=== PATIENT | female | born 1960 | race African-American/Black ===

== ENCOUNTER → 2016-12-04 | Day surgery (SDC) | payer MEDICARE ==
[~2016-12-04] VITALS: Ht 157.5 cm; Wt 99.8 kg
[~2016-12-04] MED LIST: AMLO1TAB95 PO; AMLO5TAB2 PO; ASPI325T4 PO; ATOR40TA59 PO; CALC667C6 PO; CEFAZOLIN 2GM PREMIX 50 ML IV ONE; CEPH-264 PO; CLON1PAT2 TD; ERGO500012 PO; FENTANYL PF 100 MCG/2 ML VIAL. IV PRN; FENTANYL PF 250 MCG/5 ML VIAL. ONE; FURO40TA4 PO; HEPARIN S0DIUM 5,000 UNIT in IV NORMAL SALINE 500ML BAG 500 ML IRR ONE; HEPARIN for IV BOLUS 10,000 UNIT/10 ML VIAL. ONE; HYDR-2868 PO; HYDR-2869 PO; HYDROMORPHONE 2 MG/ML VIAL. IV PRN; ISOS30TA4 PO; IV NORMAL SALINE 1000ML BAG 1,000 ML IV SCH; IV RINGERS,LACTATED 1000ML 1,000 ML IV SCH; LABE200T2 PO; LIDOCAINE 1% 1 ML SYRINGE. ID PRN; LIDOCAINE 1% PF 48 ML, SODIUM BICARBONATE VIAL 12 MEQ in TOTAL VOLUME SYRINGE 60 ML ID ONE; MIDAZOLAM HCL 2 MG/2 ML VIAL. ONE; MORPHINE SULFATE 2 MG/ML DISP.SYRIN. IV PRN; OLME40TA PO; OMEP40CA5 PO; ONDANSETRON PF 4 MG/2 ML VIAL. IV PRN; OXYC-323 PO; OXYCODONE/APAP 5/325 TABLET. ONE; OXYCODONE/APAP 5/325 TABLET. PO ONE; POTA10CA PO; PROAIR HFA8.5 GM INH; PROCHLORPERAZINE 10 MG/2 ML VIAL. IV PRN; PROPOFOL 20 ML IV ONE; SITA100T PO; SITA50TA PO; SODI650T PO; SURGICEL FIBRILLAR 1X2 EACH. ONE; TRAM50TA PO; [UNRECOGNIZED DRUG - REMARK]
[2016-12-04 08:49] LABS: BASO # 0.1 x10^3/uL (0.0-0.2); BASO % 1 % (0-3); EOS % 3 % (0-3); HEMATOCRIT 34.7 % (36.0-47.0); HEMOGLOBIN 11.4 g/dL (12.0-15.5); LYMPH # 2.1 x10^3/uL (1.0-4.8); LYMPH % 29 % (24-48); MEAN CORPUSCULAR HEMOGLOBIN 31 pg (25-35); MEAN CORPUSCULAR HGB CONC 33 g/dL (31-37); MEAN CORPUSCULAR VOLUME 93 fL (79-100); MONO % 9 % (0-9); NEUT % 59 % (31-73); PLATELET COUNT 194 x10^3/uL (140-400); RED BLOOD COUNT 3.72 x10^6/uL (3.50-5.40); RED CELL DISTRIBUTION WIDTH 14.8 % (11.5-14.5); WHITE BLOOD COUNT 7.4 x10^3/uL (4.0-11.0)
[2016-12-04 08:53] LABS: CALCIUM 9.9 mg/dL (8.5-10.1); CREATININE 6.1 mg/dL (0.6-1.0); GFR 8.7; POTASSIUM 4.4 mmol/L (3.5-5.1)
[2016-12-04 09:01] LABS: INR 1.1 (0.8-1.1); PROTHROMBIN TIME PATIENT 13.8 SEC (11.7-14.0)
--- NOTE | 2016-12-04 11:19 | PREOP HP ---
DATE OF SERVICE: 12/04/2016 CHIEF COMPLAINT: Renal failure, dialysis dependent. HISTORY OF PRESENT ILLNESS: This is a 56-year-old female on chronic hemodialysis by way of a right internal jugular dialysis catheter. She was initially seen in August of this year. Surgery has been delayed, because of admission for sepsis. That has cleared. She has underlying hypertension and diabetes. She has had vein mapping. PROCEDURE PERFORMED which showed only small veins superficially both forearm and upper arm bilaterally. The patient is right hand dominant. She is here today for placement of AV graft. MEDICATIONS: Include calcium acetate 667 mg 2 capsules t.i.d., 50,000 units of vitamin D weekly, sodium bicarbonate, amlodipine 5 mg daily, aspirin 325 mg daily, atorvastatin 40 mg daily, clonidine 0.1 mg patch daily, hydralazine 50 mg b.i.d., isosorbide mononitrate extended release 30 mg tab daily, labetalol 300 mg daily, Benicar 40 mg daily and tramadol 50 mg daily as needed for pain. PAST SURGICAL HISTORY: Hysterectomy and . SOCIAL HISTORY: The patient is a nonsmoker. PHYSICAL EXAMINATION: HEAD AND NECK: Unremarkable. Normal carotid upstrokes. No carotid bruits. Right IJ dialysis catheter in place. CHEST: Breath sounds are equal, distant. CARDIOVASCULAR: Regular rate and rhythm, no murmur. EXTREMITIES: She has excellent brachial and radial pulses. NEUROLOGIC: Nonfocal. Vein mapping is as noted. PLAN: For placement of left arm access. Procedure at the either forearm or upper arm AV graft has been discussed with the patient. She understands and agrees to proceed as recommended. ASAD PARKER MD DR: YULI/leatha JOB#: [id number] / [id number]
--- NOTE | 2016-12-04 11:33 | PDOC ---
VASCULAR BRIEF OPERATIVE NOTE Date: Dec 04, 2016 Pre-Op Diagnosis ESRD Post-Op Diagnosis same Procedure Performed left forearm AVG Surgeon Ese Anesthesia Type: MAC, Local Blood Loss min ASAD PARKER MD Dec 04, 2016 11:33
[2016-12-04 12:43] VITALS: BP 108/73
--- NOTE | 2016-12-04 16:43 | OP ---
DATE OF SURGERY: 12/04/2016 PREOPERATIVE DIAGNOSIS: Renal failure. POSTOPERATIVE DIAGNOSIS: Renal failure. PROCEDURE PERFORMED: Left forearm AV graft. SURGEON: Asad Mulligan MD ANESTHETIC: Local MAC. INDICATIONS: This is a 56-year-old hypertensive female with underlying obesity and diabetes who has end-stage renal disease, dialysis dependent at this time. She had preoperative vein mapping, which did not show adequate superficial veins either in the forearm or upper arm. Recommendation was for primary AV graft in light of the poor venous anatomy. DESCRIPTION OF PROCEDURE: The patient was brought to the operating room, preoperative antibiotics were administered. The intravenous sedation was administered, 1% Xylocaine was utilized to anesthetize the antecubital fossa and left transverse incision was placed. Soft tissue was divided with electrocautery. The antecubital vein and a small outflow cephalic and deep penetrating median antecubital vein were noted. These were marginally adequate for AV graft anastomosis. Deep dissection was continued down. Brachioradialis fascia was incised and brachial artery and its adjacent brachial vein were isolated. The adjacent brachial vein, thin walled, was a 4.5-5 mm vessel and this was selected as the outflow for the arteriovenous shunt placement. The vein and arteries were both isolated, doubly surrounded vessel loops. A counter incision was made after anesthetizing the antecubital tissues. A subcutaneous tunnel was created through which a 4-7 mm standard wall Propaten graft was passed. Vessel loops were secured and the vein longitudinal venotomy was made with 11 blade, extended with Raymond scissors, and graft was trimmed an end-to-side anastomosis was completed with HS7 Prolene suture. Graft was then flushed with heparinized saline solution. The patient received 3000 units of intravenous heparin. After 3 minutes heparin circulation, vessel loops were secured on the artery and the longitudinal arteriotomy was made here with a 11 blade, extended with Raymond scissors. The graft was trimmed and end-to-side anastomosis was completed with HS7 Prolene suture. Blood flow was instituted through the shunt and there was a palpable outflow thrill. Hemostasis required a little bit of Surgical fibrillar to achieve and this appeared to be excellent. The distal counterincision was closed with interrupted 3-0 nylon mattress sutures. The antecubital incision was closed with 3-0 Vicryl placed in the deep subcutaneous tissues and a running 3-0 Vicryl placed in subcuticular tissue. Steri-Strips and sterile dressings were applied. The patient was moved from the operating room to recovery in satisfactory stable condition. ASAD MULLIGAN MD DR: YULI/leatha JOB#: [id number] / [id number]
== END | disposition home or self-care (01) ==
LOC: SURG 07:39
DX: E11.22 Type 2 diabetes mellitus with diabetic chronic kidney disease (principal); I12.0 Hypertensive chronic kidney disease with stage 5 chronic kidney disease or end stage renal disease; N18.6 End stage renal disease; K21.9 Gastro-esophageal reflux disease without esophagitis; D64.9 Anemia, unspecified; E78.00 Pure hypercholesterolemia, unspecified; J45.909 Unspecified asthma, uncomplicated; E66.9 Obesity, unspecified; Z90.710 Acquired absence of both cervix and uterus
CPT/HCPCS: 36415; 36830; 80048; 82947; 85027; 85610; 85730; C1768; C1769; J0690; J0780; J2250; J2704; J3010; J7040

== ENCOUNTER 2017-04-15 08:33 | Inpatient (IN) | payer MEDICARE, BC ==
[~2017-04-15] VITALS: Ht 157.5 cm; Wt 109.0 kg
[2017-04-15 03:00] VITALS: BP 127/77
[~2017-04-15 08:33] MED LIST changes: -ASPI325T4 PO; +ASPI325T8 PO; -CEFAZOLIN 2GM PREMIX 50 ML IV ONE; -ERGO500012 PO; +ERGO500027 PO; -FENTANYL PF 100 MCG/2 ML VIAL. IV PRN; -FENTANYL PF 250 MCG/5 ML VIAL. ONE; -HEPARIN S0DIUM 5,000 UNIT in IV NORMAL SALINE 500ML BAG 500 ML IRR ONE; -HEPARIN for IV BOLUS 10,000 UNIT/10 ML VIAL. ONE; -HYDROMORPHONE 2 MG/ML VIAL. IV PRN; -IV NORMAL SALINE 1000ML BAG 1,000 ML IV SCH; -IV RINGERS,LACTATED 1000ML 1,000 ML IV SCH; -LIDOCAINE 1% 1 ML SYRINGE. ID PRN; -LIDOCAINE 1% PF 48 ML, SODIUM BICARBONATE VIAL 12 MEQ in TOTAL VOLUME SYRINGE 60 ML ID ONE; -MIDAZOLAM HCL 2 MG/2 ML VIAL. ONE; -MORPHINE SULFATE 2 MG/ML DISP.SYRIN. IV PRN; -OLME40TA PO; +OLME40TA12 PO; -ONDANSETRON PF 4 MG/2 ML VIAL. IV PRN; -OXYCODONE/APAP 5/325 TABLET. ONE; -OXYCODONE/APAP 5/325 TABLET. PO ONE; -POTA10CA PO; +POTASSIUM CHLO10 MEQ PO; -PROCHLORPERAZINE 10 MG/2 ML VIAL. IV PRN; -PROPOFOL 20 ML IV ONE; -SURGICEL FIBRILLAR 1X2 EACH. ONE
--- NOTE | 2017-04-15 08:53 | PHYS DOC ---
Past Medical History Past Medical History: Diabetes-Type II, High Cholesterol, Hypertension, OR, Other Additional Past Medical Histor: ESRD, enlarged heart, sleep apnea- uses cpap, obesity Past Surgical History: , Hysterectomy, Tonsillectomy Alcohol Use: None Drug Use: None Adult General Chief Complaint Chief Complaint: chest pain HPI HPI Patient is a 57 year old female who presents with squeezing chest pain. Pt reports symptoms started 20min prior to arrival while she was detention through dialysis. No radiation of pain. EMS gave asa and nitro and pt's symptoms improved after nitro. Pt states pain similar to "when I had my heart attack" last year. Unsure of the interventions completed at that time. Pt reports prior to chest pain she was feeling well, no cough, fevers, n/v. Denies h/o PE or DVT. PCP is Dr. Christian, director of labor relations Dr. Kent, charter school executive director Dr. Blanc. Review of Systems Review of Systems Constitutional: Denies fever or chills [] Eyes: Denies change in visual acuity, redness, or eye pain [] HENT: Denies nasal congestion or sore throat [] Respiratory: Denies cough or shortness of breath [] Cardiovascular: No additional information not addressed in HPI [] GI: Denies abdominal pain, nausea, vomiting, bloody stools or diarrhea [] : Denies dysuria or hematuria [] Musculoskeletal: Denies back pain or joint pain [] Integument: Denies rash or skin lesions [] Neurologic: reports headache after nitro, denies focal weakness or sensory changes [] Current Medications Current Medications Current Medications Medications (Trade) Dose Ordered Sig/[facility] Start Time Stop Time Status Last Admin Dose Admin Acetaminophen (Tylenol) 1,000 mg 1X ONCE 04/15/17 09:00 04/15/17 09:01 DC 04/15/17 09:24 1,000 MG Morphine Sulfate 4 mg PRN Q2HR PRN 04/15/17 10:00 04/16/17 09:59 04/15/17 14:58 4 MG Nitroglycerin (Nitrostat) 0.4 mg PRN Q5MIN PRN 04/15/17 10:00 04/16/17 09:59 Allergies Allergies Allergies Coded Allergies Type Severity Reaction Last Updated Verified No Known Drug Allergies 12/04/16 No Physical Exam Physical Exam Constitutional: Well developed, well nourished, no acute distress,morbid obesity HENT: Normocephalic, atraumatic, bilateral external ears normal, oropharynx moist, no oral exudates, nose normal. [] Eyes: PERRLA, EOMI, conjunctiva normal, no discharge. [] Neck: Normal range of motion, no tenderness, supple, no stridor. [] Cardiovascular:Heart rate regular with regular rhythm, no murmur [] Lungs & Thorax: Bilateral breath sounds clear to auscultation, no wheeze or crackles Abdomen: Bowel sounds normal, soft, no tenderness, no masses, no pulsatile masses. [] Skin: Warm, dry, no erythema, no rash. [] Back: No tenderness, no CVA tenderness. [] Extremities: No tenderness, no cyanosis, no clubbing, ROM intact, no edema.neg homen's bilaterally Neurologic: Alert and oriented X 3, normal motor function, normal sensory function, no focal deficits noted. [] Psychologic: Affect normal, judgement normal, mood normal. [] Current Patient Data Vital Signs Vital Signs Date Time Temp Pulse Resp B/P (MAP) Pulse Ox O2 Delivery O2 Flow Rate FiO2 04/15/17 09:25 78 16 135/80 (98) 98 Room Air 04/15/17 08:35 98.4 98.4 Lab Values Laboratory Tests Test 04/15/17 08:57 White Blood Count 6.9 x10^3/uL (4.0-11.0) Red Blood Count 3.32 x10^6/uL (3.50-5.40) L Hemoglobin 10.3 g/dL (12.0-15.5) L Hematocrit 30.3 % (36.0-47.0) L Mean Corpuscular Volume 91 fL (79-100) Mean Corpuscular Hemoglobin 31 pg (25-35) Mean Corpuscular Hemoglobin Concent 34 g/dL (31-37) Red Cell Distribution Width 14.0 % (11.5-14.5) Platelet Count 130 x10^3/uL (140-400) L Neutrophils (%) (Auto) 65 % (31-73) Lymphocytes (%) (Auto) 23 % (24-48) L Monocytes (%) (Auto) 8 % (0-9) Eosinophils (%) (Auto) 3 % (0-3) Basophils (%) (Auto) 1 % (0-3) Neutrophils # (Auto) 4.4 x10^3uL (1.8-7.7) Lymphocytes # (Auto) 1.6 x10^3/uL (1.0-4.8) Monocytes # (Auto) 0.5 x10^3/uL (0.0-1.1) Eosinophils # (Auto) 0.2 x10^3/uL (0.0-0.7) Basophils # (Auto) 0.0 x10^3/uL (0.0-0.2) Prothrombin Time 13.6 SEC (11.7-14.0) Prothrombin Time INR 1.1 (0.8-1.1) Sodium Level 141 mmol/L (136-145) Potassium Level 3.3 mmol/L (3.5-5.1) L Chloride Level 103 mmol/L (98-107) Carbon Dioxide Level 26 mmol/L (21-32) Anion Gap 12 (6-14) Blood Urea Nitrogen 28 mg/dL (7-20) H Creatinine 3.9 mg/dL (0.6-1.0) H Estimated GFR (Cockcroft-Gault) 14.5 BUN/Creatinine Ratio 7 (6-20) Glucose Level 142 mg/dL (70-99) H Calcium Level 8.3 mg/dL (8.5-10.1) L Magnesium Level 1.8 mg/dL (1.8-2.4) Total Bilirubin 0.5 mg/dL (0.2-1.0) Aspartate Amino Transferase (AST) 20 U/L (15-37) Alanine Aminotransferase (ALT) 30 U/L (14-59) Alkaline Phosphatase 76 U/L (46-116) Creatine Kinase 137 U/L (26-192) Troponin I Quantitative 0.178 ng/mL (0.000-0.055) Total Protein 7.5 g/dL (6.4-8.2) Albumin 3.5 g/dL (3.4-5.0) Albumin/Globulin Ratio 0.9 (1.0-1.7) L Laboratory Tests 04/15/17 08:57 Laboratory Tests 04/15/17 08:57 EKG EKG sinus, normal axis, QTC of 476, no ST elevation or depression, T-wave inversions in 1, aVL, compared with previous EKG performed on 05/2016 and no acute change appreciated. Radiology/Procedures Radiology/Procedures CXr: IMPRESSION: No acute finding. No significant change Course & Med Decision Making Course & Med Decision Making Pertinent Labs and Imaging studies reviewed. (See chart for details) pt given PO tylenol and morphine. Labs/CXR/ekg performed. No acute findings but pain started just prior to arrival. Will admit, accepted by Dr. Christian. Dragon Disclaimer Dragon Disclaimer This electronic medical record was generated, in whole or in part, using a voice recognition dictation system. Departure Departure Impression: Primary Impression: Chest pain Disposition: ADMITTED INPATIENT Admitting Physician: Shanti Christian Referrals: SHANTI CHRISTIAN MD (PCP) KELSEY COLLINS MD Apr 15, 2017 08:53
[2017-04-15] MEDS ORDERED: ACETAMINOPHEN 500 MG TABLET PO ONE (09:00)
[2017-04-15] MEDS ORDERED: MORPHINE SULFATE 4 MG/ML DISP.SYRIN. IV ONE (09:00)
[2017-04-15 09:05] LABS: BASO % 1 % (0-3); EOS % 3 % (0-3); HEMATOCRIT 30.3 % (36.0-47.0); HEMOGLOBIN 10.3 g/dL (12.0-15.5); LYMPH # 1.6 x10^3/uL (1.0-4.8); LYMPH % 23 % (24-48); MEAN CORPUSCULAR HEMOGLOBIN 31 pg (25-35); MEAN CORPUSCULAR HGB CONC 34 g/dL (31-37); MEAN CORPUSCULAR VOLUME 91 fL (79-100); MONO % 8 % (0-9); NEUT % 65 % (31-73); PLATELET COUNT 130 x10^3/uL (140-400); RED BLOOD COUNT 3.32 x10^6/uL (3.50-5.40); WHITE BLOOD COUNT 6.9 x10^3/uL (4.0-11.0)
--- NOTE | 2017-04-15 09:05 | EKG ---
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
[2017-04-15 09:16] LABS: INR 1.1 (0.8-1.1); PROTHROMBIN TIME PATIENT 13.6 SEC (11.7-14.0)
[2017-04-15 09:25] LABS: CALCIUM 8.3 mg/dL (8.5-10.1); CREATININE 3.9 mg/dL (0.6-1.0); GFR 14.5; POTASSIUM 3.3 mmol/L (3.5-5.1)
[2017-04-15 09:31] LABS: ALBUMIN 3.5 g/dL (3.4-5.0); ALBUMIN/GLOBULIN RATIO 0.9 (1.0-1.7); MAGNESIUM 1.8 mg/dL (1.8-2.4); TOTAL BILIRUBIN 0.5 mg/dL (0.2-1.0); TOTAL PROTEIN 7.5 g/dL (6.4-8.2)
[2017-04-15] MEDS ORDERED: MORPHINE SULFATE 4 MG/ML DISP.SYRIN. IV PRN (10:00)
[2017-04-15] MEDS ORDERED: NITROGLYCERIN SUBLINGUAL 0.4 MG BOTTLE OF 25. SL PRN (10:00)
--- NOTE | 2017-04-15 10:17 | RAD ---
Indication chest pain. A single view of the chest was obtained. Comparison is made to an examination October 01, 2016. There is unchanged mild cardiomegaly. Somewhat tortuous thoracic aorta is noted. An acute parenchymal infiltrate is not seen. There is no pleural fluid. There is no pneumothorax. A significant change compared to the prior exam is not seen. Dialysis catheter has been removed. IMPRESSION: No acute finding. No significant change
[2017-04-15 11:32] VITALS: BP 158/87
--- NOTE | 2017-04-15 11:36 | ACF ---
Admit Criteria Forms Admit Criteria Forms Admit Criteria Forms CARDIOLOGY GRG Clinical Indications for Admission to Inpatient Care ( Place 'X' for any and all applicable criteria): Hospital admission is needed for appropriate care of the patient because of ANY ONE of the following (1): [ ] I. Hemodynamic instability as indicated by ALL of the following (1)(2)(3) (4)(5) [ ]a) Vital signs or other findings not as expected for chronic patient condition or baseline [ ]b) Instability indicated by ANY ONE of the following: [ ]i) Hypotension [ ]ii) Symptomatic Tachycardia unresponsive to treatment ( e.g., analgesia, fluids, sedation as indicated) [ ]iii) Inadequate perfusion indicated by ANY ONE of the following: [ ] 1) Lactic acidosis (> 2 mmol/L) [ ] 2) New abnormal capillary refill (> 3 seconds) [ ] 3) Reduced urine output [ ] 4) New altered mental status [ ]iv) Orthostatic vital sign changes unresponsive to treatment (e.g., fluids) [ ]v) IV inotropic or vasopressor medication required to maintain adequate blood pressure or perfusion [ ] II. Severe heart failure as indicated by ANY ONE of the following(17)(18) [ ]a) Respiratory distress [ ]b) Hypotension [ ]c) Anasarca (refractory to outpatient therapy) [ ]d) Cardiac arrhythmias of immediate concern [ ]e) Myocardial ischemia [ ] III. Cardiac arrhythmias or findings of immediate concern indicated by ANY ONE of the following (19)(20): [ ] a) Heart rhythms that are inherently dangerous or unstable indicated by ANY ONE of the following (21)(22)(23): [ ] i) Resuscitated ventricular fibrillation or cardiac arrest [ ] ii) Ventricular escape rhythm [ ] iii) Sustained ventricular tachycardia (30 seconds or more of ventricular rhythm at greater than 100 beats per minute) [ ] iv) Nonsustained ventricular tachycardia and ANY ONE of the following: [ ] 1) Suspected cardiac ischemia as cause or consequence of ventricular tachycardia [ ] 2) In setting of acute myocarditis [ ] b) Unstable cardiac conduction defects indicated by ANY ONE of the following(23)(24)(25) [ ] i) Type II second-degree atrioventricular block [ ]ii) Third-degree atrioventricular block [ ]iii) New-onset left bundle branch block with suspected myocardial ischemia [ ]c) Any heart rhythm and ANY ONE of the following (21)(22)(26)(27) (28) [ ] i) Continuous long-term ECG monitoring needed (e.g., initiation of drug requiring monitoring for more than 24 hours) [ ] ii) Patient has automatic implanted cardioverter defibrillator that is repeatedly firing, malfunctioning, or in need of immediate adjustment of settings beyond the scope of ambulatory or observation care [ ]d) Heart rhythms of concern due to ANY ONE of the following: [ ] i) Hypotension [ ] ii) Respiratory distress [ ] iii) Association with other significant symptoms (e.g., bradycardia with syncope or ongoing dizziness, supraventricular tachycardia with chest pain (14)(15)(17) [ ] IV. Monitoring for cardiac contusion beyond the scope of observation care needed [A](30)(31)(32) [ ] V. Surgical or device complication (e.g., valve replacement complication , pacemaker dysfunction) (35)(41)(44)(45)(46) [ ] . Inpatient palliative care needed. [B](49) Also use Inpatient Palliative Care Criteria [ ] VII. Nonbacterial thrombotic (marantic) endocarditis (36)(43)(47)(48) [X ] VIII. Cardiology condition, symptom, or finding for which emergency and observation care has failed or are not considered appropriate. [ ] IX. Acute valvular disease requiring inpatient as indicated by ANY ONE of the following (41) [ ]a) Acute valvular regurgitation (42) [ ]b) Noninfectious valvulitis (43) [ ]c) Obstructive valve thrombosis [ ]d) Paravalvular leak [ ]e) Other significant valvular disorder remaining after emergency or observation level of care (as appropriate) [ ]X. Pericardial disease requiring inpatient treatment as indicated by ANY ONE of the following (33)(34)(35)(36)(37) [ ]a) Suspected tamponade (38)(39)(40) [ ]b) Hemopericardium [ ]c) Other significant pericardial disorder remaining after emergency or observation level of care (as appropriate) [ ] XI. Cardiac ischemia beyond scope of emergency and observation care. [ ] XII. Hypertension requiring inpatient treatment as indicated by ANY ONE of the following (6)(7)(8) [ ]a) SBP greater than 220 mm Hg or DBP greater than 120 mmHg despite treatment [ ]b) SBP greater than 140 mm Hg or DBP greater than 100 mm Hg with evidence of acute end organ damage as indicated by ANY ONE of the following [ ] i) Encephalopathy [ ] ii) Acute renal failure as indicated by new onset of ANY ONE of the following (9)(10)(11)(12)(13) [ ]1) 3-fold rise in serum creatinine from baseline [ ]2) Serum creatinine greater than 4 mg/dL ( 354 micromoles/L) with acute rise greater than 0.5 mg/dL (44.2 micromoles/L) [ ]3) Reduction of more than 75% in estimated glomerular filtration rate from baseline [ ]4) Estimated glomerular filtration rate less than 35 mL/min/1.73m2 (0.59 mL/sec/1.73m2) in child up to 18 years of age [ ]5) Cessation of urine output indicated by ALL of the following [ ]A. Adequate volume status [ ]B. Inadequate urine output as indicated by ANY ONE of the following [ ]a. Urine output less than 0.3 mL/kg/hr for 24 hours [ ]b. Anuria (urine output less than 0.1 mL/kg/hr) for 12 hours [ ] iii) Aortic dissection [ ] iv) Myocardial Ischemia [ ] v) Left ventricular heart failure [ ]vi) Retinal Hemorrhage [ ]vii) Other significant finding [ ]c) Hypertension in child requiring inpatient treatment as indicated by ALL of the following(14)(15)(16) [ ] i) Outpatient treatment not effective, not available, or not appropriate [ ]ii) SBP or DBP greater than 95th percentile for age [ ]iii) Evidence of acute end organ damage as indicated by ANY ONE of the following [ ]1) Altered mental status [ ]2) Acute renal failure as indicated by new onset of ANY ONE of the following(9)(10)(11)(12)(13) [ ]A. 3-fold rise in serum creatinine from baseline [ ]B. Serum creatinine greater than 4 mg/dL (354 micromoles/L) with acute rise greater than 0.5 mg/dL (44.2 micromoles/L) [ ]C. Reduction of more than 75% in estimated glomerular filtration rate from baseline [ ]D. Estimated glomerular filtration rate less than 35 mL/min/1.73m2 (0.59 mL/sec/1.73m2) in child up to 18 years of age [ ]E. Cessation of urine output indicated by ALL of the following [ ]a. Adequate volume status [ ]b. Inadequate urine output as indicated by ANY ONE of the following [ ]i) Urine output less than 0.3 mL/kg/hr for 24 hours [ ]ii) Anuria ( urine output less than 0.1 mL/kg/hr) for 12 hours [ ]3) Severe headache [ ]4) Visual disturbance [ ]5) Retinal hemorrhage [ ]6) Other significant finding [ ]XIII. Complications of transplanted heart indicated by ANY ONE of the following(61): [ ]a) Acute graft rejection requiring inpatient management (eg, intravenous immunosuppression)(62)(63) [ ]b) Acute graft heart failure indicated by ANY ONE of the following(64): [ ]i) Hemodynamic instability [ ]ii) Cardiac arrhythmias of immediate concern [ ]iii) Pulmonary edema that is very severe (eg, mechanical ventilation needed, imminent or likely, need for 100% oxygen to keep oxygen saturation above 90%) [ ]iv) Pulmonary edema that is persistent as indicated by ALL of the following: [ ]1) New need for oxygen therapy to keep oxygen saturation above 90% (or increased FiO2 need from baseline) [ ]2) Has not improved sufficiently with emergency department or observation care IV diuretics or other heart failure treatments[E] [ ]v) Altered mental status that is severe or persistent [ ]vi) Increased creatinine (new on laboratory test) with reduction of more than 50% in estimated glomerular filtration rate from baseline [ ]vii) Progressively (ongoing) rising creatinine (known from past laboratory test) with reduction of more than 25% in estimated glomerular filtration rate from baseline [ ]viii) Acute renal failure [ ]ix) Acute peripheral ischemia (eg, examination shows pulseless, cool, mottled, or cyanotic extremity) [ ]x) Pulmonary artery catheter monitoring needed [ ]xi) Other sign or symptom of heart failure requiring inpatient treatment (ie, too severe or not responsive to outpatient and observation care treatment) [ ]c) Infection requiring inpatient management (eg, Hemodynamic instability, need for intravenous antimicrobial treatment)(66)(67)(68)(69)(70) [ ]d) Cardiac allograft vasculopathy requiring inpatient management ( eg evidence of cardiac ischemia)(71) [ ]e) Other complication of transplanted heart (eg, stroke, severe pulmonary hypertension, severe valvular dysfunction) requiring inpatient management(72) The original [facility] [employer] content created by [employer] has been revised. The portions of the content which have been revised are identified through the use of italic text or in bold, and [facility] [employer] has neither reviewed nor approved the modified material. All other unmodified content is copyright [facility] [employer]. Please see references footnoted in the original [facility] [employer] edition 2016 BOUBACAR JONAS Apr 15, 2017 11:36
[2017-04-15] MEDS ORDERED: POTASSIUM CHLORIDE 20 MEQ TABLET.ER. PO ONE (12:00)
--- NOTE | 2017-04-15 12:19 | PDOC2 ---
KAL MA M[employer]ICIP[employer] BOND TRADER 04/15/17 1219: CARDIAC CONSULT DATE OF CONSULT Date of Consult DATE: 04/15/17 TIME: 11:49 REASON FOR CONSULT Reason for Consult: Chest pain REFERRING PHYSICIAN Referring Physician: Columba SOURCE Source: Chart review, Patient HISTORY OF PRESENT ILLNESS HISTORY OF PRESENT ILLNESS This is a pleasant 57 yo female admitted for complains of chest pain. Reports of squeezing midsternal chest discomfort non radiating without associated nausea , vomiting, SOA, palpitations. No changes to her activity tolerance. Denies any recent long distance travel and has been compliant with her dialysis and medications. She was retirement during dialysis when this happened. However, she has stopped taking her GERD medications since she ran out few weeks ago. With deep breathing and mild palpation to her mid chest her pain is reproducible. Denies any recent falls, injury or any heavy lifting. PAST MEDICAL HISTORY Past Medical History Cardiovascular: CHF (diastolic dysfunction), HTN, Hyperlipidemia Pulmonary: Asthma, SOLEDAD with CPAP intolerance CENTRAL NERVOUS SYSTEM: Other (No pertinent history) GI: No pertinent hx Heme/Onc: No pertinent hx Musculoskeletal: Osteoarthritis Renal/: ESRD Endocrine: Diabetes (2), subclinical hypothyroidism PAST SURGICAL HISTORY Past Surgical History Tonsillectomy, Hysterectomy, Carpal tunnel release, left AV graft placement, [facility] 08/2016 FAMILY HISTORY Family History: Diabetes SOCIAL HISTORY Smoke: No ALCOHOL: none Drugs: None Lives: with Family CURRENT MEDICATIONS CURRENT MEDICATIONS Current Medications Medications (Trade) Dose Ordered Sig/Kt Route PRN Reason Start Time Stop Time Status Last Admin Dose Admin Morphine Sulfate 4 mg 1X ONCE IV 04/15/17 09:00 04/15/17 09:01 DC 04/15/17 09:24 Acetaminophen (Tylenol) 1,000 mg 1X ONCE PO 04/15/17 09:00 04/15/17 09:01 DC 04/15/17 09:24 ALLERGIES ALLERGIES: Coded Allergies: No Known Drug Allergies (Unverified , 12/04/16) ROS Review of System 14 point ROS evaluated with pertinent positives noted per HPI PHYSICAL EXAM General: Alert, Oriented X3, Cooperative, No acute distress HEENT: Atraumatic, Mucous membr. moist/pink Lungs: Clear to auscultation, Normal air movement Heart: Regular rate (SR), Normal S1, Normal S2, Other (2/6 systolic murmur to LLS border) Abdomen: Soft, Other (epigastric tenderness) Extremities: No cyanosis, Other (1+ bilateral LE pitting edema; LAV dialysis fistula + for thrill and bruit) Skin: No breakdown, No significant lesion Neuro: Normal speech, Sensation intact Psych/Mental Status: Mental status NL, Mood NL MUSCULOSKELETAL: Osteoarthritic changes both hands VITALS VITALS Vital Signs Date Time Temp Pulse Resp B/P (MAP) Pulse Ox O2 Delivery O2 Flow Rate FiO2 04/15/17 09:25 78 16 135/80 (98) 98 Room Air 04/15/17 08:35 98.4 98.4 LABS Lab: Laboratory Tests Test 04/15/17 08:57 White Blood Count 6.9 x10^3/uL (4.0-11.0) Red Blood Count 3.32 x10^6/uL (3.50-5.40) Hemoglobin 10.3 g/dL (12.0-15.5) Hematocrit 30.3 % (36.0-47.0) Mean Corpuscular Volume 91 fL (79-100) Mean Corpuscular Hemoglobin 31 pg (25-35) Mean Corpuscular Hemoglobin Concent 34 g/dL (31-37) Red Cell Distribution Width 14.0 % (11.5-14.5) Platelet Count 130 x10^3/uL (140-400) Neutrophils (%) (Auto) 65 % (31-73) Lymphocytes (%) (Auto) 23 % (24-48) Monocytes (%) (Auto) 8 % (0-9) Eosinophils (%) (Auto) 3 % (0-3) Basophils (%) (Auto) 1 % (0-3) Neutrophils # (Auto) 4.4 x10^3uL (1.8-7.7) Lymphocytes # (Auto) 1.6 x10^3/uL (1.0-4.8) Monocytes # (Auto) 0.5 x10^3/uL (0.0-1.1) Eosinophils # (Auto) 0.2 x10^3/uL (0.0-0.7) Basophils # (Auto) 0.0 x10^3/uL (0.0-0.2) Prothrombin Time 13.6 SEC (11.7-14.0) Prothromb Time International Ratio 1.1 (0.8-1.1) Sodium Level 141 mmol/L (136-145) Potassium Level 3.3 mmol/L (3.5-5.1) Chloride Level 103 mmol/L (98-107) Carbon Dioxide Level 26 mmol/L (21-32) Anion Gap 12 (6-14) Blood Urea Nitrogen 28 mg/dL (7-20) Creatinine 3.9 mg/dL (0.6-1.0) Estimated GFR (Cockcroft-Gault) 14.5 BUN/Creatinine Ratio 7 (6-20) Glucose Level 142 mg/dL (70-99) Calcium Level 8.3 mg/dL (8.5-10.1) Magnesium Level 1.8 mg/dL (1.8-2.4) Total Bilirubin 0.5 mg/dL (0.2-1.0) Aspartate Amino Transf (AST/SGOT) 20 U/L (15-37) Alanine Aminotransferase (ALT/SGPT) 30 U/L (14-59) Alkaline Phosphatase 76 U/L (46-116) Troponin I Quantitative 0.178 ng/mL (0.000-0.055) Total Protein 7.5 g/dL (6.4-8.2) Albumin 3.5 g/dL (3.4-5.0) Albumin/Globulin Ratio 0.9 (1.0-1.7) ECHOCARDIOGRAM ECHOCARDIOGRAM <Conclusion> There is moderate concentric left ventricular hypertrophy. The left ventricular systolic function is normal and the ejection fraction is within normal range. The Ejection Fraction is 60-65%. There is normal LV segmental wall motion. No significant valvular disease. DATE: 04/24/16 1639 HEART CATH HEART CATH CORONARY ANGIOGRAPHY: LM is a large caliber vessel with normal angiographic appearance. LAD is a large caliber vessel with normal angiographic appearance. D1 is a moderate caliber vessel with normal angiographic appearance. Ramus is a moderate caliber vessel with normal angiographic appearance. LCx is a moderate caliber non-dominant vessel with normal angiographic appearance. OM1 is a moderate caliber vessel with normal angiographic appearance. RCA is a large caliber dominant vessel with normal angiographic appearance. RPDA is a moderate caliber vessel with normal angiographic appearance. Conclusion 1. Elevated left sided filling pressures. 2. Normal angiographic appearance of the coronary arteries. 3. Subclavian tortuosity. Recommendations Aggressive Medical Therapy DATE: 09/25/16 1541 ASSESSMENT/PLAN ASSESSMENT/PLAN 1. Atypical chest pain: Noncardiac. Likely MSK/GERD. Troponin 0.178 in the setting of ESRD, known for chronic troponin elevation with 08/2016 with normal coronaries and preserved EF. 2. HTN: controlled 3. ESRD: last HD yesterday. per nephrology 4. Chronic diastolic CHF: compensated. 5. SOLEDAD: noncompliant with CPAP 6. DM2/HLP: per PCP 7. GERD: has not taken her PPI for several weeks Recommendations 1. Continue with primary, secondary preventions 2. Fluid off loading per HD 3. PPI. No further cardiac workup at this time. Problems: FEMI JAMES MD 04/15/172: CARDIAC CONSULT ALLERGIES ALLERGIES: Coded Allergies: No Known Drug Allergies (Unverified , 12/04/16) ASSESSMENT/PLAN ASSESSMENT/PLAN Pt. seen and examined. Agree with above A P MANAGER note. 57 y.o well known to us. Has normal coronaries from 08/2016 cath. Mild troponin elevation, no ACS. Her chest pain is non-cardiac. No further testing. Thanks for consult. Will follow peripherally. Problems: KAL MA APRN Apr 15, 2017 12:19 FEMI JAMES MD Apr 15, 2017 21:22
[2017-04-15] MEDS: PANTOPRAZOLE 40 MG TABLET.DR. PO SCH (14:44)
[2017-04-15 15:00] VITALS: BP 144/91
[2017-04-15] MEDS ORDERED: NON FORMULARY ITEM (Albuterol Sulfate (Proair Hfa Inhaler) 1 PUFF) INH PRN (15:00)
[2017-04-15] MEDS ORDERED: ALBUTEROL SULFATE 2.5 MG/3 ML NEBU. NEB PRN (15:00)
[2017-04-15] MEDS ORDERED: DEXTROSE 50% 25 GM / 50ML DISP.SYRIN. IV PRN (15:00)
[2017-04-15] MEDS: ONDANSETRON PF 4 MG/2 ML VIAL. IV PRN (17:24)
[2017-04-15] MEDS: INSULIN ASPART 300 UNITS/3 ML INSULN.PEN SQ SCH (17:28)
[2017-04-15] MEDS: CALCIUM ACETATE 667 MG CAPSULE PO SCH (18:47)
[2017-04-15] MEDS: SODIUM BICARBONATE 650 MG TABLET. PO SCH ×2 (18:47→21:33)
[2017-04-15 19:00] VITALS: BP 120/73
[2017-04-15] MEDS: ATORVASTATIN CALCIUM 40 MG TABLET. PO SCH (21:33)
[2017-04-15] MEDS: LISINOPRIL 40 MG TABLET. PO SCH (21:33)
[2017-04-15] MEDS: LABETALOL HCL 200 MG TABLET PO SCH (21:34)
[2017-04-15] MEDS: amLODIPine BESYLATE 5 MG TABLET PO SCH (21:34)
[2017-04-15 23:05] VITALS: BP 117/74
[2017-04-16 03:20] VITALS: BP 127/77
[2017-04-16 07:00] VITALS: BP 119/73
[2017-04-16] MEDS: PANTOPRAZOLE 40 MG TABLET.DR. PO SCH (07:51)
[2017-04-16] MEDS: INSULIN ASPART 300 UNITS/3 ML INSULN.PEN SQ SCH ×3 (08:00→17:00)
[2017-04-16] MEDS ORDERED: cloNIDine TTS-2 1 PATCH PATCH TD SCH (09:00)
[2017-04-16] MEDS ORDERED: NON FORMULARY ITEM (Omeprazole 40 MG) PO SCH (09:00)
[2017-04-16] MEDS: SODIUM BICARBONATE 650 MG TABLET. PO SCH ×3 (09:12→22:18)
[2017-04-16] MEDS: CALCIUM ACETATE 667 MG CAPSULE PO SCH ×3 (09:12→17:40)
[2017-04-16] MEDS: ASPIRIN 325 MG TABLET PO SCH (09:12)
[2017-04-16] MEDS: LISINOPRIL 40 MG TABLET. PO SCH ×2 (09:12→22:18)
[2017-04-16] MEDS: LABETALOL HCL 200 MG TABLET PO SCH ×2 (09:13→22:17)
[2017-04-16] MEDS: ISOSORBIDE MONONITRATE ER 30 MG TAB.ER.24H PO SCH (09:13)
[2017-04-16] MEDS: amLODIPine BESYLATE 5 MG TABLET PO SCH ×2 (09:13→22:18)
--- NOTE | 2017-04-16 09:42 | PDOC1 ---
HISTORY AND PHYSICAL Chief Complaint Chief Complaint This is 57 year old female has been admitted with a chief complaint of chest pain.. Reports of squeezing midsternal chest discomfort non radiating without associated nausea, vomiting, SOA, palpitations. No changes to her activity tolerance. Denies any recent long distance travel and has been compliant with her dialysis and medications. She was alf during dialysis when this happened. However, she has stopped taking her GERD medications since she ran out few weeks ago. With deep breathing and mild palpation to her mid chest her pain is reproducible. Denies any recent falls, injury or any heavy lifting.Cardiac cath 2016 no blockages , gall stones present. Problems: Past Medical History Cardiovascular: CHF, HTN, Hyperlipidemia Pulmonary: Asthma, Other CENTRAL NERVOUS SYSTEM: Other GI: No pertinent hx Heme/Onc: No pertinent hx Hepatobiliary: No pertinent hx Musculoskeletal: Osteoarthritis Infectious disease: No pertinent hx Renal/: Chronic renal insuff Endocrine: Diabetes Past Surgical History Past Surgical History: , Tonsillectomy, Hysterectomy, Other Past Family History Family History: Diabetes, Hypertension, Kidney Disease Past Social History PSH no alcohol or smoking Review of Symptoms Review of Symptoms General ROS: positive for epigastric pain going up Psychological ROS: negative Ophthalmic ROS: negative ENT ROS: negative Allergy and Immunology ROS: negative Hematology and Lymphatic: negative Endocrine ROS: negative Respiratory ROS: no cold, cough, dyspnea. Cardiovascular ROS: no chest pain or dyspnea on exertion Gastrointestinal ROS: , change in bowel habits, or black or bloody stools Genito-Urinary ROS: no dysuria, trouble voiding, or hematuria Musculoskeletal ROS: no pain Neurological ROS: negative Dermatological ROS: no rash Medications Current Medications Albuterol Sulfate (Ventolin Neb Soln) 2.5 mg PRN BID PRN NEB SHORTNESS OF BREATH; Start 04/15/17 at 15:00 Amlodipine Besylate (Norvasc) 5 mg BID PO Last administered on 04/16/17 09:13 ; Start 04/15/17 at 21:00 Aspirin (Suresh Aspirin) 325 mg DAILYWBKFT PO Last administered on 04/16/17 09: 12; Start 04/16/17 at 08:00 Atorvastatin Calcium (Lipitor) 40 mg HS PO Last administered on 04/15/17 21:33 ; Start 04/15/17 at 21:00 Calcium Acetate (Phoslo) 1,334 mg TIDWMEALS PO Last administered on 04/16/17 09:12; Start 04/15/17 at 17:00 Clonidine HCl (Catapres Tts-2) 1 patch WEEKLY TD Last administered on 09:14; Start 04/16/17 at 09:00 Dextrose (Dextrose 50%-Water Syringe) 12.5 gm PRN Q15MIN PRN IV SEE COMMENTS; Start 04/15/17 at 15:00 Ergocalciferol (Vitamin D2) 50,000 unit WEEKLY PO ; Start 04/22/17 at 09:00 Hydralazine HCl (Apresoline) 100 mg TID PO Last administered on 04/16/17 09:36 ; Start 04/15/17 at 15:00 Insulin Aspart (NovoLOG) 0-5 UNITS TIDWMEALS SQ ; Start 04/15/17 at 17:00 Isosorbide Mononitrate (Imdur) 30 mg DAILY PO Last administered on 04/16/17 09 :13; Start 04/16/17 at 09:00 Labetalol HCl (Trandate) 200 mg BID PO Last administered on 04/16/17 09:13; Start 04/15/17 at 21:00 Lisinopril (Prinivil) 40 mg BID PO Last administered on 04/16/17 09:12; Start 04/15/17 at 21:00 Morphine Sulfate 4 mg PRN Q2HR PRN IV PAIN Last administered on 04/15/17 14:58 ; Start 04/15/17 at 10:00; Stop 04/16/17 at 09:59 Nitroglycerin (Nitrostat) 0.4 mg PRN Q5MIN PRN SL CHEST PAIN; Start 04/15/17 at 10:00; Stop 04/16/17 at 09:59 Non-Formulary Medication 1 puff PRN BID PRN INH SHORTNESS OF BREATH; Start at 15:00; Status UNV Non-Formulary Medication 40 mg DAILY PO ; Start 04/16/17 at 09:00; Status UNV Ondansetron HCl (Zofran) 4 mg PRN Q6HRS PRN IV NAUSEA/VOMITING Last administered on 04/15/17 17:24; Start 04/15/17 at 17:15 Oxycodone/ Acetaminophen (Percocet 5/325) 1 tab Q4HRS PRN PO PAIN; Start at 15:00 Pantoprazole Sodium (Protonix) 40 mg DAILYAC PO Last administered on 04/16/17 07:51; Start 04/15/17 at 12:30 Potassium Chloride (Klor-Con) 20 meq 1X ONCE PO Last administered on 14:48; Start 04/15/17 at 12:00; Stop 04/15/17 at 12:25; Status DC Sodium Bicarbonate (Sodium Bicarbonate) 650 mg TID PO Last administered on 04/16 09:12; Start 04/15/17 at 15:00 Allergy Allergies Coded Allergies Type Severity Reaction Last Updated Verified No Known Drug Allergies 12/04/16 No Physical Exam Physical Exam General appearance - alert,well appearing, and in no distress and oriented to person, place, and time Mental Status - alert, oriented to person, place, and time, affect appropriate to mood Head - normal Chest - clear to auscultation, no wheezes, rales or rhonchi, symmetric air entry Heart - S1 and S2 normal Abdomen - soft, nontender, nondistended, no masses or organomegaly Neurological - alert and oriented Musculoskeletal - no muscular tenderness noted Extremities - no pedal edema Skin - warm and dry Labs Laboratory Tests Test 04/15/17 08:57 04/15/17 15:40 04/15/17 17:05 04/15/17 21:30 White Blood Count 6.9 x10^3/uL (4.0-11.0) Red Blood Count 3.32 x10^6/uL (3.50-5.40) Hemoglobin 10.3 g/dL (12.0-15.5) Hematocrit 30.3 % (36.0-47.0) Mean Corpuscular Volume 91 fL (79-100) Mean Corpuscular Hemoglobin 31 pg (25-35) Mean Corpuscular Hemoglobin Concent 34 g/dL (31-37) Red Cell Distribution Width 14.0 % (11.5-14.5) Platelet Count 130 x10^3/uL (140-400) Neutrophils (%) (Auto) 65 % (31-73) Lymphocytes (%) (Auto) 23 % (24-48) Monocytes (%) (Auto) 8 % (0-9) Eosinophils (%) (Auto) 3 % (0-3) Basophils (%) (Auto) 1 % (0-3) Neutrophils # (Auto) 4.4 x10^3uL (1.8-7.7) Lymphocytes # (Auto) 1.6 x10^3/uL (1.0-4.8) Monocytes # (Auto) 0.5 x10^3/uL (0.0-1.1) Eosinophils # (Auto) 0.2 x10^3/uL (0.0-0.7) Basophils # (Auto) 0.0 x10^3/uL (0.0-0.2) Prothrombin Time 13.6 SEC (11.7-14.0) Prothromb Time International Ratio 1.1 (0.8-1.1) Sodium Level 141 mmol/L (136-145) Potassium Level 3.3 mmol/L (3.5-5.1) Chloride Level 103 mmol/L (98-107) Carbon Dioxide Level 26 mmol/L (21-32) Anion Gap 12 (6-14) Blood Urea Nitrogen 28 mg/dL (7-20) Creatinine 3.9 mg/dL (0.6-1.0) Estimated GFR (Cockcroft-Gault) 14.5 BUN/Creatinine Ratio 7 (6-20) Glucose Level 142 mg/dL (70-99) Calcium Level 8.3 mg/dL (8.5-10.1) Magnesium Level 1.8 mg/dL (1.8-2.4) Total Bilirubin 0.5 mg/dL (0.2-1.0) Aspartate Amino Transf (AST/SGOT) 20 U/L (15-37) Alanine Aminotransferase (ALT/SGPT) 30 U/L (14-59) Alkaline Phosphatase 76 U/L (46-116) Creatine Kinase 137 U/L (26-192) Troponin I Quantitative 0.178 ng/mL (0.000-0.055) 0.187 ng/mL (0.000-0.055) 0.157 ng/mL (0.000-0.055) Total Protein 7.5 g/dL (6.4-8.2) Albumin 3.5 g/dL (3.4-5.0) Albumin/Globulin Ratio 0.9 (1.0-1.7) Glucose (Fingerstick) 82 mg/dL (70-99) Test 04/15/17 21:32 04/16/17 07:11 Glucose (Fingerstick) 124 mg/dL (70-99) 114 mg/dL (70-99) Laboratory Tests Test 04/15/17 15:40 04/15/17 17:05 04/15/17 21:30 04/15/17 21:32 Troponin I Quantitative 0.187 ng/mL (0.000-0.055) 0.157 ng/mL (0.000-0.055) Glucose (Fingerstick) 82 mg/dL (70-99) 124 mg/dL (70-99) Test 04/16/17 07:11 Glucose (Fingerstick) 114 mg/dL (70-99) Vitals Vital Signs Date Time Temp Pulse Resp B/P (MAP) Pulse Ox O2 Delivery O2 Flow Rate FiO2 04/16/17 09:36 66 119/73 04/16/17 08:00 Room Air 04/16/17 07:00 98.2 18 99 98.2 VTE Prophylaxis VTE Prophylaxis Devices: Yes VTE Pharmacological Prophylaxi: No Assessment Assessment chest pain ? gall bladder disease htn dm esrd dialysis hyperlipidemia Plan Plan observation surgical consult home today seen by cardiology ,non cardiac problem dilaysis in am out pt For more details regarding further plans, please refer to the orders. SHANTI CHRISTIAN MD Apr 16, 2017 09:42
[2017-04-16 11:00] VITALS: BP 109/64
--- NOTE | 2017-04-16 14:34 | PDOC2 ---
CONSULT Date of Consult Date of Consult DATE: 04/16/17 TIME: 14:33 Reason for Consult Reason for Consult: ESRD Referring Physician Referring Physician: Dr Echevarria Source Source: Chart review, Patient Past Medical History Cardiovascular: CHF, HTN, Hyperlipidemia Pulmonary: Asthma, Other CENTRAL NERVOUS SYSTEM: Other GI: No pertinent hx Heme/Onc: No pertinent hx Hepatobiliary: No pertinent hx Musculoskeletal: Osteoarthritis Infectious disease: No pertinent hx Renal/: Chronic renal insuff Endocrine: Diabetes Past Surgical History Past Surgical History: , Tonsillectomy, Hysterectomy, Other Family History Family History: Diabetes, Hypertension, Kidney Disease Social History No ALCOHOL: none Drugs: None Lives: with Family Current Problem List Problem List Problems Medical Problems: (1) Chest pain Status: Acute Current Medications Current Medications Current Medications Morphine Sulfate 4 mg 1X ONCE IV Last administered on 04/15/17 09:24; Start 04/15/17 at 09:00; Stop 04/15/17 at 09:01; Status DC Acetaminophen (Tylenol) 1,000 mg 1X ONCE PO Last administered on 04/15/17 09: 24; Start 04/15/17 at 09:00; Stop 04/15/17 at 09:01; Status DC Morphine Sulfate 4 mg PRN Q2HR PRN IV PAIN Last administered on 04/15/17 14:58 ; Start 04/15/17 at 10:00; Stop 04/16/17 at 09:59; Status DC Nitroglycerin (Nitrostat) 0.4 mg PRN Q5MIN PRN SL CHEST PAIN; Start 04/15/17 at 10:00; Stop 04/16/17 at 09:59; Status DC Pantoprazole Sodium (Protonix) 40 mg DAILYAC PO Last administered on 04/16/17 07:51; Start 04/15/17 at 12:30 Potassium Chloride (Klor-Con) 20 meq 1X ONCE PO Last administered on 14:48; Start 04/15/17 at 12:00; Stop 04/15/17 at 12:25; Status DC Aspirin (Suresh Aspirin) 325 mg DAILYWBKFT PO Last administered on 04/16/17 09: 12; Start 04/16/17 at 08:00 Atorvastatin Calcium (Lipitor) 40 mg HS PO Last administered on 04/15/17 21:33 ; Start 04/15/17 at 21:00 Calcium Acetate (Phoslo) 1,334 mg TIDWMEALS PO Last administered on 04/16/17 12:00; Start 04/15/17 at 17:00 Clonidine HCl (Catapres Tts-2) 1 patch WEEKLY TD Last administered on 09:14; Start 04/16/17 at 09:00 Ergocalciferol (Vitamin D2) 50,000 unit WEEKLY PO ; Start 04/22/17 at 09:00 Hydralazine HCl (Apresoline) 100 mg TID PO Last administered on 04/16/17 09:36 ; Start 04/15/17 at 15:00 Isosorbide Mononitrate (Imdur) 30 mg DAILY PO Last administered on 04/16/17 09 :13; Start 04/16/17 at 09:00 Labetalol HCl (Trandate) 200 mg BID PO Last administered on 04/16/17 09:13; Start 04/15/17 at 21:00 Oxycodone/ Acetaminophen (Percocet 5/325) 1 tab Q4HRS PRN PO PAIN; Start at 15:00 Sodium Bicarbonate (Sodium Bicarbonate) 650 mg TID PO Last administered on 04/16 09:12; Start 04/15/17 at 15:00 Non-Formulary Medication 1 puff PRN BID PRN INH SHORTNESS OF BREATH; Start at 15:00; Status UNV Amlodipine Besylate (Norvasc) 5 mg BID PO Last administered on 04/16/17 09:13 ; Start 04/15/17 at 21:00 Non-Formulary Medication 40 mg DAILY PO ; Start 04/16/17 at 09:00; Status UNV Insulin Aspart (NovoLOG) 0-5 UNITS TIDWMEALS SQ ; Start 04/15/17 at 17:00 Dextrose (Dextrose 50%-Water Syringe) 12.5 gm PRN Q15MIN PRN IV SEE COMMENTS; Start 04/15/17 at 15:00 Lisinopril (Prinivil) 40 mg BID PO Last administered on 04/16/17 09:12; Start 04/15/17 at 21:00 Albuterol Sulfate (Ventolin Neb Soln) 2.5 mg PRN BID PRN NEB SHORTNESS OF BREATH; Start 04/15/17 at 15:00 Ondansetron HCl (Zofran) 4 mg PRN Q6HRS PRN IV NAUSEA/VOMITING Last administered on 04/15/17t 17:24; Start 04/15/17 at 17:15 Cefazolin Sodium/ Dextrose 50 ml @ 100 mls/hr 1X PREOP PRN IV surg; Start at 06:00; Stop 04/17/17 at 18:00 Active Scripts Active Phoslo (Calcium Acetate) 667 Mg Capsule 1,334 Mg PO TIDWMEALS Vitamin D2 (Ergocalciferol (Vitamin D2)) 50,000 Unit Capsule 50,000 Unit PO WEEKLY Sodium Bicarbonate 650 Mg Tablet 650 Mg PO TID Aspirin 325 Mg Tablet 325 Mg PO DAILYWBKFT Hydralazine Hcl 50 Mg Tablet 100 Mg PO TID Isosorbide Mononitrate Er (Isosorbide Mononitrate) 30 Mg Tab.er.24h 30 Mg PO DAILY Reported Percocet 5-325 Mg Tablet (Oxycodone/Acetaminophen) 1 Each Tablet 1 Tab PO Q4HRS PRN Benicar (Olmesartan Medoxomil) 40 Mg Tablet 1 Tab PO DAILY Omeprazole 40 Mg Capsule.dr 40 Mg PO DAILY Kayley 5-40 Mg Tablet (Amlodipine Bes/Olmesartan Med) 1 Each Tablet 1 Tab PO BID Clonidine Tts-2 (Clonidine) 1 Each Patch.tdwk 1 Patch TD WEEKLY Proair Hfa Inhaler (Albuterol Sulfate) 8.5 Gm Hfa.aer.ad 1 Puff INH PRN BID PRN Labetalol Hcl 200 Mg Tablet 200 Mg PO BID Atorvastatin Calcium 40 Mg Tablet 40 Mg PO HS Allergies Allergies: Coded Allergies: No Known Drug Allergies (Unverified , 12/04/16) ROS Review of System GEN: no Fevers no Chills EYES: no Visual Complaints ENT: no EN Drainage no Hearing deficiets CVS: no Orthopnea + CP while at HD RESP: no SOB no LEAL GI: no Nausea no Vomiting : no Dysuria no Urgency HEME: no easy bruising no Palp Ly Nodes NEURO no Focal Weakness no Sz PSYCH: no Suicidal Ideation no Depression SKIN: no Rashes ENDO: no Polyuria or Polydipsia non Hot/Cold Intolerance MU SK: Ch Arthraigia (Back Pain) no Myalgia Physical Exam Physical Exam Gneral Appearance: Awake Alert Oriented x 3 In no Distress Eyes: VIsion Unchanged Conjunctiva Normal EN: No EN Drainage Mucous Memb. moist Neck: no JVD no JVP Supple no Thyromegaly CVS: S1 S2 ? soft Murmur No Gallop No Rub no Edema Resp: no Rales no Rhonchi no Acc. Muscle use GI: BS +ve NO Bruit Non Tender Non Distended : no CVA tenderness; no Suprapubic Tenderness SKIN: n Rashes Breast Exam deferred Mu.Sk: Adequate ROM no Muscle Atrophy Heme: Unable to palpate Obvious LAD no palp Splenomegaly NEURO: Good Strength and Tone Cranial Nerves II - XII grossly intact Psych: not Depressed no Active hallucination Vital Signs Vital Signs Date Time Temp Pulse Resp B/P (MAP) Pulse Ox O2 Delivery O2 Flow Rate FiO2 04/16/17 11:00 98.0 73 18 109/64 (79) 93 Room Air 98.0 Assessment & Plan Assessment & Plan ESRD: Current FLuid and E-lyte status does not necessitate emergent need for Dialysis. Will re-evaluate for Dialysis in am and continue on TTSat schedule. Anemia: Epogen as ordered; Transfuse with next HD as needed. HTN: Current BP meds reviewed. See orders for changes. GB Dz - for Cholei n am - will hnce do HD early am as requested by Dr Martinez. ^e dphos as OP - ct current binders fornow and alter regimen based on PO intake. Underlying DM NEphropahty asso ESRD low K OA - recehck in am Discussed Plan of Care and prognosis etc. at length with pt Labs Labs Laboratory Tests Test 04/15/17 08:57 04/15/17 15:40 04/15/17 17:05 04/15/17 21:30 White Blood Count 6.9 x10^3/uL (4.0-11.0) Red Blood Count 3.32 x10^6/uL (3.50-5.40) Hemoglobin 10.3 g/dL (12.0-15.5) Hematocrit 30.3 % (36.0-47.0) Mean Corpuscular Volume 91 fL (79-100) Mean Corpuscular Hemoglobin 31 pg (25-35) Mean Corpuscular Hemoglobin Concent 34 g/dL (31-37) Red Cell Distribution Width 14.0 % (11.5-14.5) Platelet Count 130 x10^3/uL (140-400) Neutrophils (%) (Auto) 65 % (31-73) Lymphocytes (%) (Auto) 23 % (24-48) Monocytes (%) (Auto) 8 % (0-9) Eosinophils (%) (Auto) 3 % (0-3) Basophils (%) (Auto) 1 % (0-3) Neutrophils # (Auto) 4.4 x10^3uL (1.8-7.7) Lymphocytes # (Auto) 1.6 x10^3/uL (1.0-4.8) Monocytes # (Auto) 0.5 x10^3/uL (0.0-1.1) Eosinophils # (Auto) 0.2 x10^3/uL (0.0-0.7) Basophils # (Auto) 0.0 x10^3/uL (0.0-0.2) Prothrombin Time 13.6 SEC (11.7-14.0) Prothromb Time International Ratio 1.1 (0.8-1.1) Sodium Level 141 mmol/L (136-145) Potassium Level 3.3 mmol/L (3.5-5.1) Chloride Level 103 mmol/L (98-107) Carbon Dioxide Level 26 mmol/L (21-32) Anion Gap 12 (6-14) Blood Urea Nitrogen 28 mg/dL (7-20) Creatinine 3.9 mg/dL (0.6-1.0) Estimated GFR (Cockcroft-Gault) 14.5 BUN/Creatinine Ratio 7 (6-20) Glucose Level 142 mg/dL (70-99) Calcium Level 8.3 mg/dL (8.5-10.1) Magnesium Level 1.8 mg/dL (1.8-2.4) Total Bilirubin 0.5 mg/dL (0.2-1.0) Aspartate Amino Transf (AST/SGOT) 20 U/L (15-37) Alanine Aminotransferase (ALT/SGPT) 30 U/L (14-59) Alkaline Phosphatase 76 U/L (46-116) Creatine Kinase 137 U/L (26-192) Troponin I Quantitative 0.178 ng/mL (0.000-0.055) 0.187 ng/mL (0.000-0.055) 0.157 ng/mL (0.000-0.055) Total Protein 7.5 g/dL (6.4-8.2) Albumin 3.5 g/dL (3.4-5.0) Albumin/Globulin Ratio 0.9 (1.0-1.7) Glucose (Fingerstick) 82 mg/dL (70-99) Test 04/15/17 21:32 04/16/17 07:11 04/16/17 11:59 Glucose (Fingerstick) 124 mg/dL (70-99) 114 mg/dL (70-99) 106 mg/dL (70-99) Laboratory Tests Test 04/15/17 15:40 04/15/17 17:05 04/15/17 21:30 04/15/17 21:32 Troponin I Quantitative 0.187 ng/mL (0.000-0.055) 0.157 ng/mL (0.000-0.055) Glucose (Fingerstick) 82 mg/dL (70-99) 124 mg/dL (70-99) Test 04/16/17 07:11 04/16/17 11:59 Glucose (Fingerstick) 114 mg/dL (70-99) 106 mg/dL (70-99) ISRA GHOSH MD Apr 16, 2017 14:34
[2017-04-16 15:00] VITALS: BP 113/53
[2017-04-16 15:27] LABS: CALCIUM 8.9 mg/dL (8.5-10.1); CREATININE 6.3 mg/dL (0.6-1.0); GFR 8.3; POTASSIUM 4.4 mmol/L (3.5-5.1)
[2017-04-16 19:35] VITALS: BP 120/70
--- NOTE | 2017-04-16 21:10 | PDOC2 ---
CONSULT Date of Consult Date of Consult DATE: 04/16/17 TIME: 15:00 Past Medical History Cardiovascular: CHF, HTN, Hyperlipidemia Pulmonary: Asthma, Other CENTRAL NERVOUS SYSTEM: Other GI: No pertinent hx Heme/Onc: No pertinent hx Hepatobiliary: No pertinent hx Musculoskeletal: Osteoarthritis Infectious disease: No pertinent hx Renal/: Chronic renal insuff Endocrine: Diabetes Past Surgical History Past Surgical History: , Tonsillectomy, Hysterectomy, Other Family History Family History: Diabetes, Hypertension, Kidney Disease Social History No ALCOHOL: none Drugs: None Lives: with Family Current Problem List Problem List Problems Medical Problems: (1) Chest pain Status: Acute Current Medications Current Medications Current Medications Morphine Sulfate 4 mg 1X ONCE IV Last administered on 04/15/17 09:24; Start 04/15/17 at 09:00; Stop 04/15/17 at 09:01; Status DC Acetaminophen (Tylenol) 1,000 mg 1X ONCE PO Last administered on 04/15/17 09: 24; Start 04/15/17 at 09:00; Stop 04/15/17 at 09:01; Status DC Morphine Sulfate 4 mg PRN Q2HR PRN IV PAIN Last administered on 04/15/17 14:58 ; Start 04/15/17 at 10:00; Stop 04/16/17 at 09:59; Status DC Nitroglycerin (Nitrostat) 0.4 mg PRN Q5MIN PRN SL CHEST PAIN; Start 04/15/17 at 10:00; Stop 04/16/17 at 09:59; Status DC Pantoprazole Sodium (Protonix) 40 mg DAILYAC PO Last administered on 04/16/17 07:51; Start 04/15/17 at 12:30 Potassium Chloride (Klor-Con) 20 meq 1X ONCE PO Last administered on 14:48; Start 04/15/17 at 12:00; Stop 04/15/17 at 12:25; Status DC Aspirin (Suresh Aspirin) 325 mg DAILYWBKFT PO Last administered on 04/16/17 09: 12; Start 04/16/17 at 08:00 Atorvastatin Calcium (Lipitor) 40 mg HS PO Last administered on 04/15/17 21:33 ; Start 04/15/17 at 21:00 Calcium Acetate (Phoslo) 1,334 mg TIDWMEALS PO Last administered on 04/16/17 17:40; Start 04/15/17 at 17:00 Clonidine HCl (Catapres Tts-2) 1 patch WEEKLY TD Last administered on 09:14; Start 04/16/17 at 09:00 Ergocalciferol (Vitamin D2) 50,000 unit WEEKLY PO ; Start 04/22/17 at 09:00 Hydralazine HCl (Apresoline) 100 mg TID PO Last administered on 04/16/17 09:36 ; Start 04/15/17 at 15:00 Isosorbide Mononitrate (Imdur) 30 mg DAILY PO Last administered on 04/16/17 09 :13; Start 04/16/17 at 09:00 Labetalol HCl (Trandate) 200 mg BID PO Last administered on 04/16/17 09:13; Start 04/15/17 at 21:00 Oxycodone/ Acetaminophen (Percocet 5/325) 1 tab Q4HRS PRN PO PAIN; Start at 15:00 Sodium Bicarbonate (Sodium Bicarbonate) 650 mg TID PO Last administered on 04/16 15:29; Start 04/15/17 at 15:00 Non-Formulary Medication 1 puff PRN BID PRN INH SHORTNESS OF BREATH; Start at 15:00; Status UNV Amlodipine Besylate (Norvasc) 5 mg BID PO Last administered on 04/16/17 09:13 ; Start 04/15/17 at 21:00 Non-Formulary Medication 40 mg DAILY PO ; Start 04/16/17 at 09:00; Status UNV Insulin Aspart (NovoLOG) 0-5 UNITS TIDWMEALS SQ ; Start 04/15/17 at 17:00 Dextrose (Dextrose 50%-Water Syringe) 12.5 gm PRN Q15MIN PRN IV SEE COMMENTS; Start 04/15/17 at 15:00 Lisinopril (Prinivil) 40 mg BID PO Last administered on 04/16/17 09:12; Start 04/15/17 at 21:00 Albuterol Sulfate (Ventolin Neb Soln) 2.5 mg PRN BID PRN NEB SHORTNESS OF BREATH; Start 04/15/17 at 15:00 Ondansetron HCl (Zofran) 4 mg PRN Q6HRS PRN IV NAUSEA/VOMITING Last administered on 04/15/17t 17:24; Start 04/15/17 at 17:15 Cefazolin Sodium/ Dextrose 50 ml @ 100 mls/hr 1X PREOP PRN IV surg; Start at 06:00; Stop 04/17/17 at 18:00 Ondansetron HCl (Zofran) 4 mg PRN Q6HRS PRN IV NAUSEA/VOMITING; Start 04/17/17 at 07:00; Stop 04/18/17 at 06:59 Fentanyl Citrate (Fentanyl 2ml Vial) 25 mcg PRN Q5MIN PRN IV MILD PAIN; Start 04/17/17 at 07:00; Stop 04/18/17 at 06:59 Fentanyl Citrate (Fentanyl 2ml Vial) 50 mcg PRN Q5MIN PRN IV MODERATE PAIN; Start 04/17/17 at 07:00; Stop 04/18/17 at 06:59 Morphine Sulfate 1 mg PRN Q10MIN PRN IV SEVERE PAIN; Start 04/17/17 at 07:00; Stop 04/18/17 at 06:59 Ringer's Solution 1,000 ml @ 0 mls/hr Q0M IV ; Start 04/17/17 at 07:00; Stop at 18:59 Lidocaine HCl 2 ml PRN 1X PRN ID PRIOR TO IV START; Start 04/17/17 at 07:00; Stop 04/18/17 at 06:59 Hydromorphone HCl (Dilaudid) 0.5 mg PRN Q10MIN PRN IV SEV PAIN, Second choice; Start 04/17/17 at 07:00; Stop 04/18/17 at 06:59 Prochlorperazine Edisylate (Compazine) 5 mg PACU PRN PRN IV NAUSEA, MRX1; Start 04/17/17 at 07:00; Stop 04/18/17 at 06:59 Active Scripts Active Phoslo (Calcium Acetate) 667 Mg Capsule 1,334 Mg PO TIDWMEALS Vitamin D2 (Ergocalciferol (Vitamin D2)) 50,000 Unit Capsule 50,000 Unit PO WEEKLY Sodium Bicarbonate 650 Mg Tablet 650 Mg PO TID Aspirin 325 Mg Tablet 325 Mg PO DAILYWBKFT Hydralazine Hcl 50 Mg Tablet 100 Mg PO TID Isosorbide Mononitrate Er (Isosorbide Mononitrate) 30 Mg Tab.er.24h 30 Mg PO DAILY Reported Percocet 5-325 Mg Tablet (Oxycodone/Acetaminophen) 1 Each Tablet 1 Tab PO Q4HRS PRN Benicar (Olmesartan Medoxomil) 40 Mg Tablet 1 Tab PO DAILY Omeprazole 40 Mg Capsule.dr 40 Mg PO DAILY Kayley 5-40 Mg Tablet (Amlodipine Bes/Olmesartan Med) 1 Each Tablet 1 Tab PO BID Clonidine Tts-2 (Clonidine) 1 Each Patch.tdwk 1 Patch TD WEEKLY Proair Hfa Inhaler (Albuterol Sulfate) 8.5 Gm Hfa.aer.ad 1 Puff INH PRN BID PRN Labetalol Hcl 200 Mg Tablet 200 Mg PO BID Atorvastatin Calcium 40 Mg Tablet 40 Mg PO HS Allergies Allergies: Coded Allergies: No Known Drug Allergies (Unverified , 12/04/16) Vitals VITALS Vital Signs Date Time Temp Pulse Resp B/P (MAP) Pulse Ox O2 Delivery O2 Flow Rate FiO2 04/16/17 19:35 97.9 66 18 120/70 (87) 94 Room Air 97.9 Labs Labs Laboratory Tests Test 04/15/17 08:57 04/15/17 15:40 04/15/17 17:05 04/15/17 21:30 White Blood Count 6.9 x10^3/uL (4.0-11.0) Red Blood Count 3.32 x10^6/uL (3.50-5.40) Hemoglobin 10.3 g/dL (12.0-15.5) Hematocrit 30.3 % (36.0-47.0) Mean Corpuscular Volume 91 fL (79-100) Mean Corpuscular Hemoglobin 31 pg (25-35) Mean Corpuscular Hemoglobin Concent 34 g/dL (31-37) Red Cell Distribution Width 14.0 % (11.5-14.5) Platelet Count 130 x10^3/uL (140-400) Neutrophils (%) (Auto) 65 % (31-73) Lymphocytes (%) (Auto) 23 % (24-48) Monocytes (%) (Auto) 8 % (0-9) Eosinophils (%) (Auto) 3 % (0-3) Basophils (%) (Auto) 1 % (0-3) Neutrophils # (Auto) 4.4 x10^3uL (1.8-7.7) Lymphocytes # (Auto) 1.6 x10^3/uL (1.0-4.8) Monocytes # (Auto) 0.5 x10^3/uL (0.0-1.1) Eosinophils # (Auto) 0.2 x10^3/uL (0.0-0.7) Basophils # (Auto) 0.0 x10^3/uL (0.0-0.2) Prothrombin Time 13.6 SEC (11.7-14.0) Prothromb Time International Ratio 1.1 (0.8-1.1) Sodium Level 141 mmol/L (136-145) Potassium Level 3.3 mmol/L (3.5-5.1) Chloride Level 103 mmol/L (98-107) Carbon Dioxide Level 26 mmol/L (21-32) Anion Gap 12 (6-14) Blood Urea Nitrogen 28 mg/dL (7-20) Creatinine 3.9 mg/dL (0.6-1.0) Estimated GFR (Cockcroft-Gault) 14.5 BUN/Creatinine Ratio 7 (6-20) Glucose Level 142 mg/dL (70-99) Calcium Level 8.3 mg/dL (8.5-10.1) Magnesium Level 1.8 mg/dL (1.8-2.4) Total Bilirubin 0.5 mg/dL (0.2-1.0) Aspartate Amino Transf (AST/SGOT) 20 U/L (15-37) Alanine Aminotransferase (ALT/SGPT) 30 U/L (14-59) Alkaline Phosphatase 76 U/L (46-116) Creatine Kinase 137 U/L (26-192) Troponin I Quantitative 0.178 ng/mL (0.000-0.055) 0.187 ng/mL (0.000-0.055) 0.157 ng/mL (0.000-0.055) Total Protein 7.5 g/dL (6.4-8.2) Albumin 3.5 g/dL (3.4-5.0) Albumin/Globulin Ratio 0.9 (1.0-1.7) Glucose (Fingerstick) 82 mg/dL (70-99) Test 04/15/17 21:32 04/16/17 07:11 04/16/17 11:59 04/16/17 14:40 Glucose (Fingerstick) 124 mg/dL (70-99) 114 mg/dL (70-99) 106 mg/dL (70-99) Sodium Level 142 mmol/L (136-145) Potassium Level 4.4 mmol/L (3.5-5.1) Chloride Level 105 mmol/L (98-107) Carbon Dioxide Level 27 mmol/L (21-32) Anion Gap 10 (6-14) Blood Urea Nitrogen 51 mg/dL (7-20) Creatinine 6.3 mg/dL (0.6-1.0) Estimated GFR (Cockcroft-Gault) 8.3 Glucose Level 120 mg/dL (70-99) Calcium Level 8.9 mg/dL (8.5-10.1) Test 04/16/17 16:24 Glucose (Fingerstick) 119 mg/dL (70-99) Laboratory Tests Test 04/15/17 21:30 04/15/17 21:32 04/16/17 07:11 04/16/17 11:59 Troponin I Quantitative 0.157 ng/mL (0.000-0.055) Glucose (Fingerstick) 124 mg/dL (70-99) 114 mg/dL (70-99) 106 mg/dL (70-99) Test 04/16/17 14:40 04/16/17 16:24 Sodium Level 142 mmol/L (136-145) Potassium Level 4.4 mmol/L (3.5-5.1) Chloride Level 105 mmol/L (98-107) Carbon Dioxide Level 27 mmol/L (21-32) Anion Gap 10 (6-14) Blood Urea Nitrogen 51 mg/dL (7-20) Creatinine 6.3 mg/dL (0.6-1.0) Estimated GFR (Cockcroft-Gault) 8.3 Glucose Level 120 mg/dL (70-99) Calcium Level 8.9 mg/dL (8.5-10.1) Glucose (Fingerstick) 119 mg/dL (70-99) Assessment/Plan Assessment/Plan FND Wk # [id number] for l/s bj in AM Thanks for consult DADA LOPEZ MD Apr 16, 2017 21:10
[2017-04-16] MEDS: ATORVASTATIN CALCIUM 40 MG TABLET. PO SCH (22:18)
[2017-04-16 23:39] VITALS: BP 141/94
[2017-04-17] VITALS (11 sets, daily range): BP systolic 112–138; BP diastolic 59–83
[2017-04-17] MEDS: oxyCODONE/APAP 5/325 1 TAB TABLET PO PRN ×4 (01:14→21:48)
--- NOTE | 2017-04-17 03:37 | CONS ---
DATE OF CONSULTATION: 04/16/2017 HISTORY OF PRESENT ILLNESS: The patient is a 57-year-old obese, end-stage renal patient on hemodialysis, who has known for some time that she has cholelithiasis. She came in yesterday with squeezing midsternal chest discomfort. She was evaluated by the Cardiology service and found to not have an acute cardiac stent. We were asked to see her to offer cholecystectomy in hopes of preventing recurrent symptoms. PAST SURGICAL HISTORY: , T and A, hysterectomy. PAST MEDICAL HISTORY: End-stage renal disease on hemodialysis, asthma, hypertension, history of congestive failure, diabetes. ALLERGIES: No known drug allergies. ROUTINE MEDICATIONS: Listed on reconciliation sheet. FAMILY HISTORY: Positive for hypertension, kidney disease, diabetes. SOCIAL HISTORY: She is a nonsmoker who does not use alcohol. REVIEW OF SYSTEMS: GENERAL: Denies chills or fevers. HEENT: No recent earaches or sore throat. CARDIAC: No palpitations or chest pain. RESPIRATORY: No productive cough or wheezing. GASTROINTESTINAL: See history of present illness. GENITOURINARY: No dysuria or increased frequency. NEUROLOGIC: Denies headaches or visual changes. PHYSICAL EXAMINATION: GENERAL: Reveals an obese female who is awake, alert and oriented x 3 and in no acute distress. VITAL SIGNS: At the time of exam, temperature was 97.5, heart rate 76, blood pressure 113/53. HEENT: She is normocephalic. EOMs intact. NECK: Supple. LUNGS: Clear. CARDIOVASCULAR: Heart has regular rate and rhythm. ABDOMEN: Belly is obese, soft, well-healed Pfannenstiel scar from previous pelvic surgery. Minimal tenderness to palpation in the epigastrium, right upper quadrant without appreciable mass. PELVIC AND RECTAL: Deferred. EXTREMITIES: Showed no gross skeletal abnormalities. NEUROLOGIC: She is grossly intact. ADMISSION LABORATORY DATA: Showed a white count of 6900, hemoglobin 10.3. Chemistries showed potassium of 3.3. Chest x-ray on presentation showed no acute findings. IMPRESSION: 1. Symptomatic cholelithiasis. 2. End-stage renal disease, on hemodialysis. 3. Obesity. 4. Asthma. 5. Diabetes. PLAN: Laparoscopic cholecystectomy. I discussed the procedure with the patient and explained risks including but not limited to bleeding, infection, injury to the bowel, liver, or bile ducts with resultant bile leak or bowel blockage. Also, the potential for diarrhea postoperatively or requiring an "open" procedure. Also, the fact that despite cholecystectomy, she may continue to have her symptoms. She understands and will proceed. Thank you for asking me to see the patient and participate in her care. We will follow her with you during the hospitalization. DADA LOPEZ MD DR: JUSTIN/leatha JOB#: [id number] / [id number]
--- NOTE | 2017-04-17 04:51 | CONS ---
DATE OF CONSULTATION: PRIMARY PHYSICIAN: SHANTI CHRISTIAN MD REASON FOR CONSULTATION: ESRD dialysis. HISTORY OF PRESENT ILLNESS: The patient is a 57-year-old -[place] female, who was at dialysis yesterday and after dialysis, she developed a crushing chest pain. She thinks her blood pressures may have been low at that time, she has been cleared by Cardiology. ____ time and is not felt to have a cardiac event per se. On arrival here, she was not found to have any significant pleural effusions or CHF per se. Renal consulted for her ESRD needs, pending further evaluation and it is noted that the patient needs her gallbladder ____ and hence we were asked to coordinate dialysis with that. She recently had a heart catheterization about a year ago and had normal angiographic appearance of the coronary arteries based on cardiology reports. For rest of details, please see electronic records. ISRA GHOSH MD DR: KEELY/leatha JOB#: [id number] / [id number]
[2017-04-17] MEDS ORDERED: IV NORMAL SALINE 1000ML BAG 1,000 ML IV PRN (06:19)
[2017-04-17] MEDS ORDERED: DIALYSIS PATIENT. MC PRN ×2 (06:30)
[2017-04-17] MEDS ORDERED: LIDOCAINE 1% 1 ML SYRINGE. ID PRN (07:00)
[2017-04-17] MEDS ORDERED: fentaNYL PF VIAL 100 MCG/2 ML VIAL IV PRN ×2 (07:00→21:30)
[2017-04-17] MEDS ORDERED: ONDANSETRON PF 4 MG/2 ML VIAL. IV PRN (07:00)
[2017-04-17] MEDS ORDERED: HYDROmorphone 2 MG/ML VIAL IV PRN (07:00)
[2017-04-17] MEDS ORDERED: IV RINGERS,LACTATED 1000ML 1,000 ML IV SCH (07:00)
[2017-04-17] MEDS ORDERED: PROCHLORPERAZINE 10 MG/2 ML VIAL. IV PRN (07:00)
[2017-04-17] MEDS: PANTOPRAZOLE 40 MG TABLET.DR. PO SCH (07:30)
[2017-04-17] MEDS ORDERED: BUPIVACAINE-EPI 0.5%-1:200000 50 ML VIAL. ONE (07:34)
[2017-04-17] MEDS ORDERED: GLUCAGON,HUMAN RECOMBINANT 1 MG/ML VIAL. ONE (07:34)
[2017-04-17] MEDS ORDERED: SURGICEL HEMOSTAT 4X8 EACH. ONE (07:34)
[2017-04-17] MEDS ORDERED: IOHEXOL 300 MG/ML 50 ML VIAL. ONE (07:34)
[2017-04-17] MEDS: CALCIUM ACETATE 667 MG CAPSULE PO SCH ×3 (08:00→18:01)
[2017-04-17] MEDS: INSULIN ASPART 300 UNITS/3 ML INSULN.PEN SQ SCH ×3 (08:00→17:00)
[2017-04-17] MEDS: ASPIRIN 325 MG TABLET PO SCH (08:00)
[2017-04-17] MEDS ORDERED: PROPOFOL 20 ML IV ONE (08:11)
[2017-04-17] MEDS ORDERED: ROCURONIUM 50 MG/5 ML VIAL. ONE (08:11)
[2017-04-17] MEDS ORDERED: FAMOTIDINE 20 MG/2 ML VIAL ONE (08:11)
[2017-04-17] MEDS ORDERED: LIDOCAINE 2% PF Vial for OR 5 ML VIAL. ONE (08:11)
[2017-04-17] MEDS ORDERED: ONDANSETRON PF 4 MG/2 ML VIAL. ONE (08:11)
[2017-04-17] MEDS ORDERED: DEXAMETHASONE SOD PHOS 20 MG/5 ML VIAL. ONE (08:11)
[2017-04-17] MEDS ORDERED: fentaNYL PF VIAL 250 MCG/5 ML VIAL ONE (08:11)
--- NOTE | 2017-04-17 08:51 | PDOC ---
Dialysis Progress Note Dialysis Note Dialysis Note Seen on Hemodialysis, tolerating treatment Well Vitals on Hemodialysis: 153/88 74 afeb General Appearance: Asleep Alert Oriented x 3 - when awake Neck: No JVD or JVP Chest: CTA [place] Heart: S1 S2 Abdomen - Soft NTND Extremities - No Edema ESRD: Dialysis as below F 180 NR 3.5 Hrs 3 K 2.5 Ca 140 Na 35 HC03 Qb 350 + Qd 500+ Heparin 0 Units Uf 2- 3 Kgs or to dry weight as tolerated May give 25-50 gms of 25% Albumin if needed to maintain Hemodynamic stability Treatment plan reviewed and discussed with manufacturing software engineer Vitals Vital Signs Vital Signs Date Time Temp Pulse Resp B/P (MAP) Pulse Ox O2 Delivery O2 Flow Rate FiO2 04/17/17 03:11 97.1 81 18 112/64 (80) 94 Room Air 97.1 Labs Last Labs Laboratory Tests Test 04/15/17 08:57 04/15/17 15:40 04/15/17 17:05 04/15/17 21:30 White Blood Count 6.9 x10^3/uL (4.0-11.0) Red Blood Count 3.32 x10^6/uL (3.50-5.40) Hemoglobin 10.3 g/dL (12.0-15.5) Hematocrit 30.3 % (36.0-47.0) Mean Corpuscular Volume 91 fL (79-100) Mean Corpuscular Hemoglobin 31 pg (25-35) Mean Corpuscular Hemoglobin Concent 34 g/dL (31-37) Red Cell Distribution Width 14.0 % (11.5-14.5) Platelet Count 130 x10^3/uL (140-400) Neutrophils (%) (Auto) 65 % (31-73) Lymphocytes (%) (Auto) 23 % (24-48) Monocytes (%) (Auto) 8 % (0-9) Eosinophils (%) (Auto) 3 % (0-3) Basophils (%) (Auto) 1 % (0-3) Neutrophils # (Auto) 4.4 x10^3uL (1.8-7.7) Lymphocytes # (Auto) 1.6 x10^3/uL (1.0-4.8) Monocytes # (Auto) 0.5 x10^3/uL (0.0-1.1) Eosinophils # (Auto) 0.2 x10^3/uL (0.0-0.7) Basophils # (Auto) 0.0 x10^3/uL (0.0-0.2) Prothrombin Time 13.6 SEC (11.7-14.0) Prothromb Time International Ratio 1.1 (0.8-1.1) Sodium Level 141 mmol/L (136-145) Potassium Level 3.3 mmol/L (3.5-5.1) Chloride Level 103 mmol/L (98-107) Carbon Dioxide Level 26 mmol/L (21-32) Anion Gap 12 (6-14) Blood Urea Nitrogen 28 mg/dL (7-20) Creatinine 3.9 mg/dL (0.6-1.0) Estimated GFR (Cockcroft-Gault) 14.5 BUN/Creatinine Ratio 7 (6-20) Glucose Level 142 mg/dL (70-99) Calcium Level 8.3 mg/dL (8.5-10.1) Magnesium Level 1.8 mg/dL (1.8-2.4) Total Bilirubin 0.5 mg/dL (0.2-1.0) Aspartate Amino Transf (AST/SGOT) 20 U/L (15-37) Alanine Aminotransferase (ALT/SGPT) 30 U/L (14-59) Alkaline Phosphatase 76 U/L (46-116) Creatine Kinase 137 U/L (26-192) Troponin I Quantitative 0.178 ng/mL (0.000-0.055) 0.187 ng/mL (0.000-0.055) 0.157 ng/mL (0.000-0.055) Total Protein 7.5 g/dL (6.4-8.2) Albumin 3.5 g/dL (3.4-5.0) Albumin/Globulin Ratio 0.9 (1.0-1.7) Glucose (Fingerstick) 82 mg/dL (70-99) Test 04/15/17 21:32 04/16/17 07:11 04/16/17 11:59 04/16/17 14:40 Glucose (Fingerstick) 124 mg/dL (70-99) 114 mg/dL (70-99) 106 mg/dL (70-99) Sodium Level 142 mmol/L (136-145) Potassium Level 4.4 mmol/L (3.5-5.1) Chloride Level 105 mmol/L (98-107) Carbon Dioxide Level 27 mmol/L (21-32) Anion Gap 10 (6-14) Blood Urea Nitrogen 51 mg/dL (7-20) Creatinine 6.3 mg/dL (0.6-1.0) Estimated GFR (Cockcroft-Gault) 8.3 Glucose Level 120 mg/dL (70-99) Calcium Level 8.9 mg/dL (8.5-10.1) Test 04/16/17 16:24 04/16/17 20:47 Glucose (Fingerstick) 119 mg/dL (70-99) 131 mg/dL (70-99) Laboratory Tests Test 04/16/17 11:59 04/16/17 14:40 04/16/17 16:24 04/16/17 20:47 Glucose (Fingerstick) 106 mg/dL (70-99) 119 mg/dL (70-99) 131 mg/dL (70-99) Sodium Level 142 mmol/L (136-145) Potassium Level 4.4 mmol/L (3.5-5.1) Chloride Level 105 mmol/L (98-107) Carbon Dioxide Level 27 mmol/L (21-32) Anion Gap 10 (6-14) Blood Urea Nitrogen 51 mg/dL (7-20) Creatinine 6.3 mg/dL (0.6-1.0) Estimated GFR (Cockcroft-Gault) 8.3 Glucose Level 120 mg/dL (70-99) Calcium Level 8.9 mg/dL (8.5-10.1) Assessment Assessment Problems Medical Problems: (1) Chest pain Status: Acute Problems: Plan Plan of Care Problems Medical Problems: (1) Chest pain Status: Acute ISRA GHOSH MD Apr 17, 2017 08:51
[2017-04-17] MEDS: ISOSORBIDE MONONITRATE ER 30 MG TAB.ER.24H PO SCH (09:00)
[2017-04-17] MEDS: LABETALOL HCL 200 MG TABLET PO SCH ×2 (09:00→20:44)
[2017-04-17] MEDS: amLODIPine BESYLATE 5 MG TABLET PO SCH ×2 (09:00→20:46)
[2017-04-17] MEDS: SODIUM BICARBONATE 650 MG TABLET. PO SCH ×3 (09:00→20:44)
[2017-04-17] MEDS: LISINOPRIL 40 MG TABLET. PO SCH ×2 (09:00→20:45)
[2017-04-17] MEDS: IV NORMAL SALINE 1000ML BAG 1,000 ML IV SCH ×2 (10:13→23:35)
[2017-04-17] MEDS ORDERED: SUCCINYLCHOLINE 200 MG/10 ML VIAL. ONE (10:32)
[2017-04-17 11:00] LABS: POTASSIUM 4.1 mmol/L (3.5-5.1)
[2017-04-17] MEDS ORDERED: PHENYLEPHRINE in 0.9% NACL PF 1 MG/10 ML DISP.SYRIN. IV ONE (11:26)
[2017-04-17] MEDS ORDERED: NEOSTIGMINE METHYLSULFATE 5 MG/5 ML SYRINGE. ONE (11:27)
[2017-04-17] MEDS ORDERED: GLYCOPYRROLATE 1 MG/5 ML VIAL. ONE (11:27)
--- NOTE | 2017-04-17 11:56 | PDOC ---
PROGRESS NOTES Subjective Subjective pt in surgery lap bj Objective Objective Vital Signs Date Time Temp Pulse Resp B/P (MAP) Pulse Ox O2 Delivery O2 Flow Rate FiO2 04/17/17 10:25 98.9 83 20 136/74 95 Room Air 98.9 Intake and Output 04/17/17 07:00 Intake Total 640 ml Output Total 400 ml Balance 240 ml Intake Oral 640 ml Output Urine Total 400 ml Diagnosis Problem List Problems Medical Problems: (1) Chest pain Status: Acute Assessment Assessment Problems Medical Problems: (1) Chest pain Status: Acute Assessment chest pain ? gall bladder disease htn dm esrd dialysis hyperlipidemia Plan Plan dialysis today Lap cholecystectomy today surgical consult appreciated home tomorrow? seen by cardiology ,non cardiac problem For more details regarding further plans, please refer to the orders. Problems: Plan Plan of Care Problems Medical Problems: (1) Chest pain Status: Acute Comment Review of Relevant I have reviewed the following items ute (where applicable) has been applied. Labs Laboratory Tests Test 04/16/17 11:59 04/16/17 14:40 04/16/17 16:24 04/16/17 20:47 Glucose (Fingerstick) 106 mg/dL (70-99) 119 mg/dL (70-99) 131 mg/dL (70-99) Sodium Level 142 mmol/L (136-145) Potassium Level 4.4 mmol/L (3.5-5.1) Chloride Level 105 mmol/L (98-107) Carbon Dioxide Level 27 mmol/L (21-32) Anion Gap 10 (6-14) Blood Urea Nitrogen 51 mg/dL (7-20) Creatinine 6.3 mg/dL (0.6-1.0) Estimated GFR (Cockcroft-Gault) 8.3 Glucose Level 120 mg/dL (70-99) Calcium Level 8.9 mg/dL (8.5-10.1) Test 04/17/17 10:35 Potassium Level 4.1 mmol/L (3.5-5.1) Glucose Level 119 mg/dL (70-99) Medications Current Medications Bupivacaine HCl/ Epinephrine Bitart (Marcaine-Epi 0.5%-1:[id number]) 50 ml STK-MED ONCE .ROUTE Last administered on 04/17/17t 11:21; Start 04/17/17 at 07:34; Stop 04/17/17 at 07:35; Status DC Cefazolin Sodium/ Dextrose 50 ml @ 100 mls/hr 1X PREOP PRN IV surg Last administered on 04/17/17t 11:03; Start 04/17/17 at 06:00; Stop 04/17/17 at 18:00 Cellulose 1 each STK-MED ONCE .ROUTE ; Start 04/17/17 at 07:34; Stop 04/17/17 at 07:35; Status DC Dexamethasone Sodium Phosphate (Decadron) 20 mg STK-MED ONCE .ROUTE ; Start at 08:11; Stop 04/17/17 at 08:12; Status DC Ergocalciferol (Vitamin D2) 50,000 unit WEEKLY PO ; Start 04/22/17 at 09:00 Famotidine (Pepcid) 20 mg STK-MED ONCE .ROUTE ; Start 04/17/17 at 08:11; Stop at 08:12; Status DC Fentanyl Citrate (Fentanyl 2ml Vial) 25 mcg PRN Q5MIN PRN IV MILD PAIN; Start 04/17/17 at 07:00; Stop 04/18/17 at 06:59 Fentanyl Citrate (Fentanyl 2ml Vial) 50 mcg PRN Q5MIN PRN IV MODERATE PAIN; Start 04/17/17 at 07:00; Stop 04/18/17 at 06:59 Fentanyl Citrate (Fentanyl 5ml Vial) 250 mcg STK-MED ONCE .ROUTE ; Start at 08:11; Stop 04/17/17 at 08:12; Status DC Glucagon (Glucagen) 1 mg STK-MED ONCE .ROUTE ; Start 04/17/17 at 07:34; Stop at 07:35; Status DC Glycopyrrolate (Robinul) 1 mg STK-MED ONCE .ROUTE ; Start 04/17/17 at 11:27; Stop 04/17/17 at 11:28; Status DC Hydromorphone HCl (Dilaudid) 0.5 mg PRN Q10MIN PRN IV SEV PAIN, Second choice; Start 04/17/17 at 07:00; Stop 04/18/17 at 06:59 Info (PHARMACY MONITORING -- do not chart) 1 each PRN DAILY PRN MC SEE COMMENTS ; Start 04/17/17 at 06:30 Info (PHARMACY MONITORING -- do not chart) 1 each PRN DAILY PRN MC SEE COMMENTS ; Start 04/17/17 at 06:30; Status UNV Iohexol (Omnipaque 300 Mg/ml) 50 ml STK-MED ONCE .ROUTE Last administered on t 11:21; Start 04/17/17 at 07:34; Stop 04/17/17 at 07:35; Status DC Lidocaine HCl 2 ml PRN 1X PRN ID PRIOR TO IV START; Start 04/17/17 at 07:00; Stop 04/18/17 at 06:59 Lidocaine HCl (Lidocaine Pf 2% Vial) 5 ml STK-MED ONCE .ROUTE ; Start 04/17/17 at 08:11; Stop 04/17/17 at 08:12; Status DC Morphine Sulfate 1 mg PRN Q10MIN PRN IV SEVERE PAIN; Start 04/17/17 at 07:00; Stop 04/18/17 at 06:59 Neostigmine Methylsulfate 5 mg STK-MED ONCE .ROUTE ; Start 04/17/17 at 11:27; Stop 04/17/17 at 11:28; Status DC Ondansetron HCl (Zofran) 4 mg PRN Q6HRS PRN IV NAUSEA/VOMITING; Start 04/17/17 at 07:00; Stop 04/18/17 at 06:59 Ondansetron HCl (Zofran) 4 mg STK-MED ONCE .ROUTE ; Start 04/17/17 at 08:11; Stop 04/17/17 at 08:12; Status DC Phenylephrine HCl 1 mg STK-MED ONCE IV ; Start 04/17/17 at 11:26; Stop 04/17/17 at 11:27; Status DC Prochlorperazine Edisylate (Compazine) 5 mg PACU PRN PRN IV NAUSEA, MRX1; Start 04/17/17 at 07:00; Stop 04/18/17 at 06:59 Propofol 20 ml @ As Directed STK-MED ONCE IV ; Start 04/17/17 at 08:11; Stop at 08:12; Status DC Ringer's Solution 1,000 ml @ 0 mls/hr Q0M IV ; Start 04/17/17 at 07:00; Stop at 18:59; Status Cancel Rocuronium [place] (Zemuron) 50 mg STK-MED ONCE .ROUTE ; Start 04/17/17 at 08:11 ; Stop 04/17/17 at 08:12; Status DC Sodium Chloride 1,000 ml @ 75 mls/hr [id number] IV Last administered on t 10:13; Start 04/17/17 at 10:15 Sodium Chloride 1,000 ml @ 1,000 mls/hr Q1H PRN IV hypotension; Start 04/17/17 at 06:19; Stop 04/17/17 at 12:18 Succinylcholine Chloride (Anectine) 200 mg STK-MED ONCE .ROUTE ; Start 04/17/17 at 10:32; Stop 04/17/17 at 10:33; Status DC Vitals/I & O Vital Sign - Last 24 Hours 04/16/17 04/16/17 04/16/17 04/16/17 14:00 15:00 19:35 19:50 Temp 97.5 97.9 97.5 97.9 Pulse 76 76 66 Resp 18 18 B/P (MAP) 113/53 113/53 (73) 120/70 (87) Pulse Ox 93 94 O2 Delivery Room Air Room Air Room Air 04/16/17 04/16/17 04/16/17 04/16/17 22:17 22:18 22:18 22:19 Pulse 66 66 66 66 B/P (MAP) 120/70 120/70 120/70 120/70 04/16/17 04/17/17 04/17/17 04/17/17 23:39 01:14 02:14 03:11 Temp 97.6 97.1 97.6 97.1 Pulse 75 81 Resp 21 20 20 18 B/P (MAP) 141/94 (110) 112/64 (80) Pulse Ox 95 94 O2 Delivery Room Air Room Air Room Air 04/17/17 04/17/17 08:00 10:25 Temp 98.9 98.9 Pulse 83 Resp 20 B/P (MAP) 136/74 Pulse Ox 95 O2 Delivery Room Air Room Air Intake and Output 04/16/17 04/16/17 04/17/17 15:00 23:00 07:00 Intake Total 520 ml 120 ml Output Total 0 ml 400 ml Balance 520 ml -280 ml SHANTI CHRISTIAN MD Apr 17, 2017 11:56
--- NOTE | 2017-04-17 11:57 | RAD ---
Indication operative cholangiogram. Assess for potential complication. Evaluate for potential choledocholithiasis. Protocol study. 4 mm in the department surgery fluoroscopy was provided. 2 spot fluoroscopic images were obtained. Fluoroscopy time has been indicated as 0.23 minutes. The common bile duct appears normal. No filling defects are seen. Contrast flows unremarkably into the duodenum. IMPRESSION: Normal operative cholangiogram
--- NOTE | 2017-04-17 12:20 | PDOC ---
BRIEF OPERATIVE NOTE Date: Apr 17, 2017 Pre-Op Diagnosis symptomatic cholelithiasis Post-Op Diagnosis same Procedure Performed l/s cholecystectomy with cholangiograms Surgeon Juan Wash Operator Kristy Schaffer PHARMACIST CRITICAL CARE Anesthesia Type: General Blood Loss 10cc IV Fluid 400cc Specimens Obtained GB Findings supple GB with some omental adhesions, normal grams Complications none OPerative Note Wk # [id number] DADA LOPEZ MD Apr 17, 2017 12:20
[2017-04-17] MEDS ORDERED: NALOXONE 0.4 MG/ML VIAL. ONE (12:33)
[2017-04-17] MEDS: fentaNYL PF VIAL 100 MCG/2 ML VIAL IV PRN ×2 (12:53→13:00)
[2017-04-17] MEDS: MORPHINE SULFATE 2 MG/ML DISP.SYRIN. IV PRN ×2 (13:19→13:28)
[2017-04-17] MEDS: ONDANSETRON PF 4 MG/2 ML VIAL. IV PRN ×2 (15:25→20:47)
--- NOTE | 2017-04-17 17:30 | OP ---
DATE OF SURGERY: 04/17/2017 PREOPERATIVE DIAGNOSIS: Symptomatic cholelithiasis. POSTOPERATIVE DIAGNOSIS: Symptomatic cholelithiasis. PROCEDURE: Laparoscopic cholecystectomy with cholangiogram. SURGEON: Goldy Lopez M.D. MAJOR [employer]SEM[employer]Y LINEMAN: FABIO Palacios. ANESTHESIA: General endotracheal. ESTIMATED BLOOD LOSS: 10 mL. IV FLUID: 400 mL. INDICATIONS: The patient is an obese 57-year-old female end-stage renal patient on hemodialysis with epigastric and right upper quadrant pain. She has known cholelithiasis. She is brought for cholecystectomy. OPERATIVE FINDINGS: There was a large omental apron. The liver was enlarged and slightly rounded. The gallbladder was supple with some omental adhesions along the inferior aspect. Visual inspection of the remainder of the abdomen failed to reveal obvious abnormalities. DESCRIPTION OF PROCEDURE: The patient was brought to the operating suite, given a general endotracheal anesthetic and the abdomen prepped and draped in usual sterile fashion. A 5-mm port site was chosen above the umbilicus, infiltrated with local anesthetic, incised and a 5-mm port used to gain access into the abdominal cavity, taking care to avoid injury to abdominal contents. Pneumoperitoneum established. Camera inserted and inspection carried out with results as noted above. With the table rolled to the left and reverse Trendelenburg, the epigastric, midclavicular, and lateral ports were placed under direct vision. The gallbladder was retracted superolaterally and omental adhesions were carefully taken down with cautery and blunt dissection, avoiding injury to the adjacent bowel. The cystic duct and cystic artery were visualized. The duct was clipped on the gallbladder side. Cholangiograms were made. These showed that we had cannulated the cystic duct and had free-flow of contrast in the distal common duct into the duodenum. The table was placed in steep Trendelenburg, but despite this, I was unable to fill the proximal radicals. In light of this, the catheter was removed. The cystic duct was clipped x 3 and divided, taking care to avoid injury or compromise of the common duct. The cystic artery was clipped and divided and the gallbladder freed from the bed with cautery dissection and placed in an EndoCatch bag. Good hemostasis was present in the fossa. The gallbladder was delivered through the epigastric incision. Epigastric incision closed with interrupted 0 Vicryl suture. Intra-abdominal pressure decreased to 6 cm of water. No bleeding from the epigastric closure or from the midclavicular or lateral port sites after their removal. Skin incisions closed with subcuticular 4-0 Monocryl. Steri-Strips and sterile dressings applied. The patient was awakened from her anesthetic and taken to the recovery room in satisfactory condition. GOLDY LOPEZ MD DR: JUSTIN/leatha JOB#: [id number] / [id number]
[2017-04-17] MEDS: ATORVASTATIN CALCIUM 40 MG TABLET. PO SCH (20:45)
[2017-04-17] MEDS ORDERED: oxyCODONE/APAP 5/325 1 TAB TABLET PO PRN (21:30)
[2017-04-17 23:07] LABS: HEP B SURFACE ABDY Reactive (.)
[2017-04-18] MEDS: oxyCODONE/APAP 5/325 1 TAB TABLET PO PRN ×3 (02:52→17:45)
[2017-04-18 03:20] VITALS: BP 118/67
[2017-04-18 07:00] VITALS: BP 122/77
--- NOTE | 2017-04-18 07:58 | PDOC ---
SUBJECTIVE ROS ESRD doing OK post Pam x fro some abd pain CVS: no Orthopnea, no CP RESP: no SOB, no LEAL GI: no Nausea, no Vomiting : no Dysuria, no Urgency OBJECTIVE Vital Signs Vital Signs Date Time Temp Pulse Resp B/P (MAP) Pulse Ox O2 Delivery O2 Flow Rate FiO2 04/18/17 03:52 20 Room Air 04/18/17 03:20 98.7 79 118/67 (84) 98 2.0 98.7 I & 0 Intake and Output 04/18/17 07:00 Intake Total 980 ml Output Total 350 ml Balance 630 ml Intake Oral 130 ml IV Total 850 ml Output Urine Total 350 ml PHYSICAL EXAM Physical Exam Gneral Appearance: Awake Alert Oriented x 3 In no Distress Eyes: VIsion Unchanged Conjunctiva Normal EN: No EN Drainage Mucous Memb. moist Neck: no JVD no JVP Supple no Thyromegaly CVS: S1 S2 ? soft Murmur No Gallop No Rub no Edema Resp: no Rales no Rhonchi no Acc. Muscle use GI: BS +ve NO Bruit Non Tender Non Distended : no CVA tenderness; no Suprapubic Tenderness Assessment & Plan ESRD: Current FLuid and E-lyte status does not necessitate emergent need for Dialysis. Will re-evaluate for Dialysis in am and continue on TTSat schedule. Anemia: Epogen as ordered; Transfuse with next HD as needed. HTN: Current BP meds reviewed. See orders for changes. GB Dz - /sp Pam ^e dphos as OP - ct current binders fornow and alter regimen based on PO intake. Underlying DM NEphropahty asso ESRD low K OA - resolved Discussed Plan of Care and prognosis etc. at length with pt COMMENT/RELEVANT DATA Meds Current Medications Medications (Trade) Dose Ordered Sig/Kt Start Time Stop Time Status Last Admin Dose Admin Acetaminophen (Tylenol) 1,000 mg 1X ONCE 04/15/17 09:00 04/15/17 09:01 DC 04/15/17 09:24 1,000 MG Albuterol Sulfate (Ventolin Neb Soln) 2.5 mg PRN BID PRN 04/15/17 15:00 04/17/17 12:59 2.5 MG Amlodipine Besylate (Norvasc) 5 mg BID 04/15/17 21:00 04/17/17 20:46 5 MG Aspirin (Suresh Aspirin) 325 mg [id number] 04/16/17 08:00 04/16/17 09:12 325 MG Atorvastatin Calcium (Lipitor) 40 mg HS 04/15/17 21:00 04/17/17 20:45 40 MG Bupivacaine HCl/ Epinephrine Bitart (Marcaine-Epi 0.5%-[id number]) 50 ml STK-MED ONCE 04/17/17 07:34 04/17/17 07:35 DC 04/17/17 11:21 6 ML Calcium Acetate (Phoslo) 1,334 mg TIDWMEALS 04/15/17 17:00 04/17/17 18:01 1,334 MG Cefazolin Sodium/ Dextrose 50 ml @ 100 mls/hr 1X PREOP PRN 04/17/17 06:00 04/17/17 18:00 DC 04/17/17 11:03 100 MLS/HR Cellulose 1 each STK-MED ONCE 04/17/17 07:34 04/17/17 07:35 DC Clonidine HCl (Catapres Tts-2) 1 patch WEEKLY 04/16/17 09:00 04/16/17 09:14 1 PATCH Dexamethasone Sodium Phosphate (Decadron) 20 mg STK-MED ONCE 04/17/17 08:11 04/17/17 08:12 DC Dextrose (Dextrose 50%-Water Syringe) 12.5 gm PRN Q15MIN PRN 04/15/17 15:00 Ergocalciferol (Vitamin D2) 50,000 unit WEEKLY 04/22/17 09:00 Famotidine (Pepcid) 20 mg STK-MED ONCE 04/17/17 08:11 04/17/17 08:12 DC Fentanyl Citrate (Fentanyl 2ml Vial) 25 mcg PRN Q3HRS PRN 04/17/17 21:30 Fentanyl Citrate (Fentanyl 5ml Vial) 250 mcg STK-MED ONCE 04/17/17 08:11 04/17/17 08:12 DC Glucagon (Glucagen) 1 mg STK-MED ONCE 04/17/17 07:34 04/17/17 07:35 DC Glycopyrrolate (Robinul) 1 mg STK-MED ONCE 04/17/17 11:27 04/17/17 11:28 DC Hydralazine HCl (Apresoline) 100 mg TID 04/15/17 15:00 04/17/17 20:44 100 MG Hydromorphone HCl (Dilaudid) 0.5 mg PRN Q10MIN PRN 04/17/17 07:00 04/17/17 20:22 DC Info (PHARMACY MONITORING -- do not chart) 1 each PRN DAILY PRN 04/17/17 06:30 UNV Insulin Aspart (NovoLOG) 0-5 UNITS TIDWMEALS 04/15/17 17:00 Iohexol (Omnipaque 300 Mg/ml) 50 ml STK-MED ONCE 04/17/17 07:34 04/17/17 07:35 DC 04/17/17 11:21 10 ML Isosorbide Mononitrate (Imdur) 30 mg DAILY 04/16/17 09:00 04/16/17 09:13 30 MG Labetalol HCl (Trandate) 200 mg BID 04/15/17 21:00 04/17/17 20:44 200 MG Lidocaine HCl (Lidocaine Pf 2% Vial) 5 ml STK-MED ONCE 04/17/17 08:11 04/17/17 08:12 DC Lisinopril (Prinivil) 40 mg BID 04/15/17 21:00 04/17/17 20:45 40 MG Morphine Sulfate 1 mg PRN Q10MIN PRN 04/17/17 07:00 04/17/17 20:22 DC 04/17/17 13:28 1 MG Naloxone HCl (Narcan) 0.4 mg STK-MED ONCE 04/17/17 12:33 04/17/17 12:34 DC Neostigmine Methylsulfate 5 mg STK-MED ONCE 04/17/17 11:27 04/17/17 11:28 DC Nitroglycerin (Nitrostat) 0.4 mg PRN Q5MIN PRN 04/15/17 10:00 04/16/17 09:59 DC Non-Formulary Medication 40 mg DAILY 04/16/17 09:00 UNV Ondansetron HCl (Zofran) 4 mg STK-MED ONCE 04/17/17 08:11 04/17/17 08:12 DC Oxycodone/ Acetaminophen (Percocet 5/325) 1 tab PRN Q4HRS PRN 04/17/17 21:30 Pantoprazole Sodium (Protonix) 40 mg DAILYAC 04/15/17 12:30 04/16/17 07:51 40 MG Phenylephrine HCl 1 mg STK-MED ONCE 04/17/17 11:26 04/17/17 11:27 DC Potassium Chloride (Klor-Con) 20 meq 1X ONCE 04/15/17 12:00 04/15/17 12:25 DC 04/15/17 14:48 20 MEQ Prochlorperazine Edisylate (Compazine) 5 mg PACU PRN PRN 04/17/17 07:00 04/17/17 20:22 DC Propofol 20 ml @ As Directed STK-MED ONCE 04/17/17 08:11 04/17/17 08:12 DC Ringer's Solution 1,000 ml @ 0 mls/hr Q0M 04/17/17 07:00 04/17/17 18:59 Cancel Rocuronium Jackson (Zemuron) 50 mg STK-MED ONCE 04/17/17 08:11 04/17/17 08:12 DC Sodium Bicarbonate (Sodium Bicarbonate) 650 mg TID 04/15/17 15:00 04/17/17 20:44 650 MG Sodium Chloride 1,000 ml @ 75 mls/hr [id number] 04/17/17 10:15 04/17/17 10:13 75 MLS/HR Succinylcholine Chloride (Anectine) 200 mg STK-MED ONCE 04/17/17 10:32 04/17/17 10:33 DC Lab Laboratory Tests Test 04/17/17 08:28 04/17/17 10:35 04/17/17 13:20 04/17/17 17:18 Hepatitis B Surface Antigen Negative (Negative) Hepatitis B Surface Antibody Reactive (.) Potassium Level 4.1 mmol/L (3.5-5.1) Glucose Level 119 mg/dL (70-99) Glucose (Fingerstick) 146 mg/dL (70-99) 154 mg/dL (70-99) Test 04/17/17 20:50 Glucose (Fingerstick) 147 mg/dL (70-99) ISRA GHOSH MD Apr 18, 2017 07:58
[2017-04-18] MEDS: INSULIN ASPART 300 UNITS/3 ML INSULN.PEN SQ SCH ×3 (08:00→17:00)
[2017-04-18] MEDS: ASPIRIN 325 MG TABLET PO SCH (08:31)
[2017-04-18] MEDS: PANTOPRAZOLE 40 MG TABLET.DR. PO SCH (08:34)
[2017-04-18] MEDS: CALCIUM ACETATE 667 MG CAPSULE PO SCH ×3 (08:34→17:42)
[2017-04-18] MEDS: SODIUM BICARBONATE 650 MG TABLET. PO SCH ×3 (08:34→21:09)
[2017-04-18] MEDS: LISINOPRIL 40 MG TABLET. PO SCH ×2 (08:35→21:08)
[2017-04-18] MEDS: ISOSORBIDE MONONITRATE ER 30 MG TAB.ER.24H PO SCH (08:35)
[2017-04-18] MEDS: LABETALOL HCL 200 MG TABLET PO SCH ×2 (08:36→21:10)
[2017-04-18] MEDS: amLODIPine BESYLATE 5 MG TABLET PO SCH ×2 (08:36→21:09)
[2017-04-18] MEDS ORDERED: MAGNESIUM SULFATE 2GM 50 ML IV PRN (09:30)
[2017-04-18] MEDS: IV NORMAL SALINE 1000ML BAG 1,000 ML IV SCH (10:39)
[2017-04-18 11:00] VITALS: BP 111/65
--- NOTE | 2017-04-18 11:54 | PDOC ---
PROGRESS NOTES Subjective Subjective some pain rt upper abdomen Objective Objective Vital Signs Date Time Temp Pulse Resp B/P (MAP) Pulse Ox O2 Delivery O2 Flow Rate FiO2 04/18/17 11:00 98.0 64 18 111/65 (80) 95 Nasal Cannula 2.0 98.0 Intake and Output 04/18/17 07:00 Intake Total 980 ml Output Total 350 ml Balance 630 ml Intake Oral 130 ml IV Total 850 ml Output Urine Total 350 ml Physical Exam Abdomen: Normal bowel sounds, Soft Heart: Regular rate General: Alert Lungs: Clear to auscultation MUSCULOSKELETAL: No deformity Neck: Supple Neuro: Normal speech Psych/Mental Status: Mood NL Skin: No breakdown Diagnosis Problem List Problems Medical Problems: (1) Chest pain Status: Acute Assessment Assessment Assessment chest pain ? gall bladder disease,known gall stones htn dm esrd dialysis hyperlipidemia Plan Plan; POD #1, Lap cholecystectomy dialysis yesterday home tomorrow surgical consult appreciated advance diet+ambulate today seen by cardiology ,non cardiac problem For more details regarding further plans, please refer to the orders. Problems: Plan Plan of Care Problems Medical Problems: (1) Chest pain Status: Acute Comment Review of Relevant I have reviewed the following items ute (where applicable) has been applied. Labs Laboratory Tests Test 04/17/17 13:20 04/17/17 17:18 04/17/17 20:50 04/18/17 07:47 Glucose (Fingerstick) 146 mg/dL (70-99) 154 mg/dL (70-99) 147 mg/dL (70-99) 108 mg/dL (70-99) Test 04/18/17 11:44 Glucose (Fingerstick) 125 mg/dL (70-99) Medications Current Medications Darbepoetin Dano (Aranesp) 100 mcg WEEKLYHS SQ ; Start 04/18/17 at 21:00 Ergocalciferol (Vitamin D2) 50,000 unit WEEKLY PO ; Start 04/22/17 at 09:00 Fentanyl Citrate (Fentanyl 2ml Vial) 25 mcg PRN Q3HRS PRN IV SEVERE PAIN; Start 04/17/17 at 21:30 Magnesium Sulfate/ Dextrose 50 ml @ 25 mls/hr PRN DAILY PRN IV for Mag < 1.7 on am labs; Start 04/18/17 at 09:30 Naloxone HCl (Narcan) 0.4 mg STK-MED ONCE .ROUTE ; Start 04/17/17 at 12:33; Stop 04/17/17 at 12:34; Status DC Oxycodone/ Acetaminophen (Percocet 5/325) 1 tab PRN Q4HRS PRN PO MODERATE PAIN ; Start 04/17/17 at 21:30 Oxycodone/ Acetaminophen (Percocet 5/325) 2 tab PRN Q4HRS PRN PO SEVERE PAIN Last administered on 04/18/17t 02:52; Start 04/17/17 at 21:30 Vitals/I & O Vital Sign - Last 24 Hours 04/17/17 04/17/17 04/17/17 04/17/17 12:25 12:25 12:40 12:53 Pulse 90 82 Resp 28 24 28 B/P (MAP) 157/88 142/80 Pulse Ox 90 94 95 O2 Delivery Mask Simple Mask Simple Mask Simple Mask O2 Flow Rate 10 10 10 10.0 04/17/17 04/17/17 04/17/17 04/17/17 12:55 13:00 13:10 13:19 Pulse 86 85 Resp 20 20 20 22 B/P (MAP) 130/77 135/72 Pulse Ox 94 95 90 93 O2 Delivery Simple Mask Simple Mask Nasal Cannula Nasal Cannula O2 Flow Rate 10 10.0 2 2.0 04/17/17 04/17/17 04/17/17 04/17/17 13:23 13:25 13:25 13:28 Pulse 84 Resp 18 22 20 B/P (MAP) 132/75 Pulse Ox 95 93 95 O2 Delivery Nasal Cannula Nasal Cannula Nasal Cannula Nasal Cannula O2 Flow Rate 2.0 2 2 2.0 04/17/17 04/17/17 04/17/17 04/17/17 13:45 13:50 13:50 14:00 Temp 98.2 98.1 98.2 98.1 Pulse 81 76 Resp 20 20 20 20 B/P (MAP) 121/66 (84) 130/78 (95) Pulse Ox 94 95 95 94 O2 Delivery Nasal Cannula Nasal Cannula Nasal Cannula Nasal Cannula O2 Flow Rate 2.0 2.0 2.0 2.0 04/17/17 04/17/17 04/17/17 04/17/17 14:15 14:30 14:45 15:00 Temp 97.9 97.9 97.8 97.9 97.9 97.8 Pulse 79 80 71 80 Resp 20 20 20 B/P (MAP) 125/67 (86) 122/69 (86) 133/78 (96) Pulse Ox 95 95 96 O2 Delivery Nasal Cannula Nasal Cannula Nasal Cannula O2 Flow Rate 2.0 2.0 2.0 04/17/17 04/17/17 04/17/17 04/17/17 15:12 15:15 15:45 16:45 Temp 98.3 98.3 97.7 98.3 98.3 97.7 Pulse 75 69 72 80 Resp 20 20 20 B/P (MAP) 138/74 138/74 (95) 114/59 (77) 117/81 (93) Pulse Ox 96 96 95 O2 Delivery Nasal Cannula Nasal Cannula Nasal Cannula O2 Flow Rate 2.0 2.0 2.0 04/17/17 04/17/17 04/17/17 04/17/17 18:02 19:02 19:15 19:30 Temp 98.1 98.1 Pulse 80 Resp 18 18 18 B/P (MAP) 138/71 (93) Pulse Ox 95 95 98 O2 Delivery Nasal Cannula Nasal Cannula Room Air Nasal Cannula O2 Flow Rate 2.0 2.0 2.0 04/17/17 04/17/17 04/17/17 04/17/17 20:44 20:44 20:45 20:46 Pulse 80 80 80 80 B/P (MAP) 138/71 138/71 138/71 138/71 04/17/17 04/17/17 04/17/17 04/17/17 21:48 22:48 23:22 23:22 Temp 98.1 98.1 Pulse 81 Resp 20 21 B/P (MAP) 138/83 (101) Pulse Ox 95 89 O2 Delivery Room Air Nasal Cannula Room Air O2 Flow Rate 2.0 2.0 04/18/17 04/18/17 04/18/17 04/18/17 02:52 03:20 03:52 07:00 Temp 98.7 98.4 98.7 98.4 Pulse 79 68 Resp 20 20 20 18 B/P (MAP) 118/67 (84) 122/77 (92) Pulse Ox 98 99 O2 Delivery Room Air Nasal Cannula Room Air Nasal Cannula O2 Flow Rate 2.0 2.0 2.0 7/23/17 04/18/17 04/18/17 04/18/17 08:14 08:35 08:35 08:36 Pulse 68 68 68 B/P (MAP) 122/77 122/77 122/77 O2 Delivery Room Air 04/18/17 04/18/17 04/18/17 08:36 08:37 11:00 Temp 98.0 98.0 Pulse 68 68 64 Resp 18 B/P (MAP) 122/77 122/77 111/65 (80) Pulse Ox 95 O2 Delivery Nasal Cannula O2 Flow Rate 2.0 Intake and Output 04/17/17 04/17/17 04/18/17 15:00 23:00 07:00 Intake Total 860 ml 120 ml Output Total 350 ml 0 ml Balance 860 ml -350 ml 120 ml SHANTI CHRISTIAN MD Apr 18, 2017 11:54
--- NOTE | 2017-04-18 12:04 | PDOC ---
SURGICAL PROGRESS NOTE Subjective "sore" no n/v Vital Signs Vital Signs Date Time Temp Pulse Resp B/P (MAP) Pulse Ox O2 Delivery O2 Flow Rate FiO2 04/18/17 11:00 98.0 64 18 111/65 (80) 95 Nasal Cannula 2.0 98.0 I&O Intake and Output 04/18/17 07:00 Intake Total 980 ml Output Total 350 ml Balance 630 ml Intake Oral 130 ml IV Total 850 ml Output Urine Total 350 ml PATIENT HAS A HARRIS: No General: Alert, Oriented X3, No acute distress Abdomen: Soft, Other (obese, dressings intact) Labs Laboratory Tests Test 04/16/17 14:40 04/16/17 16:24 04/16/17 20:47 04/17/17 08:28 Sodium Level 142 mmol/L (136-145) Potassium Level 4.4 mmol/L (3.5-5.1) Chloride Level 105 mmol/L (98-107) Carbon Dioxide Level 27 mmol/L (21-32) Anion Gap 10 (6-14) Blood Urea Nitrogen 51 mg/dL (7-20) Creatinine 6.3 mg/dL (0.6-1.0) Estimated GFR (Cockcroft-Gault) 8.3 Glucose Level 120 mg/dL (70-99) Calcium Level 8.9 mg/dL (8.5-10.1) Glucose (Fingerstick) 119 mg/dL (70-99) 131 mg/dL (70-99) Hepatitis B Surface Antigen Negative (Negative) Hepatitis B Surface Antibody Reactive (.) Test 04/17/17 10:35 04/17/17 13:20 04/17/17 17:18 04/17/17 20:50 Potassium Level 4.1 mmol/L (3.5-5.1) Glucose Level 119 mg/dL (70-99) Glucose (Fingerstick) 146 mg/dL (70-99) 154 mg/dL (70-99) 147 mg/dL (70-99) Test 04/18/17 07:47 04/18/17 11:44 Glucose (Fingerstick) 108 mg/dL (70-99) 125 mg/dL (70-99) Laboratory Tests Test 04/17/17 13:20 04/17/17 17:18 04/17/17 20:50 04/18/17 07:47 Glucose (Fingerstick) 146 mg/dL (70-99) 154 mg/dL (70-99) 147 mg/dL (70-99) 108 mg/dL (70-99) Test 04/18/17 11:44 Glucose (Fingerstick) 125 mg/dL (70-99) Problem List Problems Medical Problems: (1) Chest pain Status: Acute Assessment/Plan POD 1 l/s bj home any time from surgery standpoint d/w Dr Echevarria Problems: DADA LOPEZ MD Apr 18, 2017 12:04
[2017-04-18 15:40] VITALS: BP 147/87
[2017-04-18 18:21] VITALS: BP 104/57
[2017-04-18] MEDS ORDERED: DARBEPOETIN ALFA 100 MCG/0.5 ML DISP.SYRIN. SQ SCH (21:00)
[2017-04-18] MEDS: ATORVASTATIN CALCIUM 40 MG TABLET. PO SCH (21:09)
[2017-04-18 22:35] VITALS: BP 145/83
[2017-04-19] VITALS (7 sets, daily range): BP systolic 93–164; BP diastolic 54–87
[2017-04-19] MEDS: IV NORMAL SALINE 1000ML BAG 1,000 ML IV SCH (02:15)
[2017-04-19 05:50] LABS: ALBUMIN 3.2 g/dL (3.4-5.0); CALCIUM 9.4 mg/dL (8.5-10.1); CREATININE 6.9 mg/dL (0.6-1.0); GFR 7.5; PHOSPHORUS 6.8 mg/dL (2.6-4.7); POTASSIUM 4.8 mmol/L (3.5-5.1)
[2017-04-19] MEDS: oxyCODONE/APAP 5/325 1 TAB TABLET PO PRN ×2 (08:32→17:25)
[2017-04-19] MEDS: LABETALOL HCL 200 MG TABLET PO SCH ×2 (08:33→21:24)
[2017-04-19] MEDS: ASPIRIN 325 MG TABLET PO SCH (08:33)
[2017-04-19] MEDS: PANTOPRAZOLE 40 MG TABLET.DR. PO SCH (08:33)
[2017-04-19] MEDS: ISOSORBIDE MONONITRATE ER 30 MG TAB.ER.24H PO SCH (08:33)
[2017-04-19] MEDS: LISINOPRIL 40 MG TABLET. PO SCH ×2 (08:34→21:21)
[2017-04-19] MEDS: SODIUM BICARBONATE 650 MG TABLET. PO SCH ×3 (08:34→21:20)
[2017-04-19] MEDS: CALCIUM ACETATE 667 MG CAPSULE PO SCH ×3 (08:34→17:22)
[2017-04-19] MEDS: amLODIPine BESYLATE 5 MG TABLET PO SCH ×2 (08:34→21:22)
[2017-04-19] MEDS: INSULIN ASPART 300 UNITS/3 ML INSULN.PEN SQ SCH ×3 (08:35→17:21)
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
--- NOTE | 2017-04-19 11:29 | PDOC ---
Renal-Progress Notes Subjective Notes Notes NO COMPLAINTS History of Present Illness Hx of present illness STABLE Vitals Vitals Vital Signs Date Time Temp Pulse Resp B/P (MAP) Pulse Ox O2 Delivery O2 Flow Rate FiO2 04/19/17 09:32 Room Air 04/19/17 08:34 85 164/83 04/19/17 07:00 98.7 18 92 98.7 04/18/17 18:45 2.0 Weight Weight [ ] I.O. Intake and Output Intake and Output 04/19/17 07:00 Intake Total 600 ml Output Total 425 ml Balance 175 ml Intake Oral 600 ml Output Urine Total 425 ml Labs Labs Laboratory Tests Test 04/18/17 11:44 04/18/17 16:28 04/18/17 21:20 04/19/17 05:00 Glucose (Fingerstick) 125 mg/dL (70-99) 135 mg/dL (70-99) 147 mg/dL (70-99) Hemoglobin 9.3 g/dL (12.0-15.5) Sodium Level 137 mmol/L (136-145) Potassium Level 4.8 mmol/L (3.5-5.1) Chloride Level 100 mmol/L (98-107) Carbon Dioxide Level 29 mmol/L (21-32) Anion Gap 8 (6-14) Blood Urea Nitrogen 56 mg/dL (7-20) Creatinine 6.9 mg/dL (0.6-1.0) Estimated GFR (Cockcroft-Gault) 7.5 Glucose Level 113 mg/dL (70-99) Calcium Level 9.4 mg/dL (8.5-10.1) Phosphorus Level 6.8 mg/dL (2.6-4.7) Magnesium Level 2.5 mg/dL (1.8-2.4) Albumin 3.2 g/dL (3.4-5.0) Test 04/19/17 07:40 Glucose (Fingerstick) 105 mg/dL (70-99) Review of Systems Constitutional: yes: weakness, oriented Ears/Nose/Throat: Yes: no symptom reported Pulmonary: Yes no symptom reported Cardiovascular: Yes no symptom reported Gastrointestional: Yes: constipation Genitourinary: Yes: no symptom reported Musculoskeletal: Yes: muscle stiffness Psychiatric/Neurological: Yes: no symptom reported Physical Exam General Appearance: no apparent distress Skin: warm Respiratory: bilateral CTA Heart: S1S2, no thrills Abdomen: soft, bowel sounds present Genitourinary: bladder flat Neurology: alert Musculoskeletal: Osteoarthritis Assessment Assessment IMP S/P CHOLY ANEMIA ESRD PLAN HD TOMORROW ENC PO LABS IN AM MIROSLAVA MENON MD Apr 19, 2017 11:29
--- NOTE | 2017-04-19 13:18 | PDOC ---
SURGICAL PROGRESS NOTE Subjective tolerating diet incisional TTP Vital Signs Vital Signs Date Time Temp Pulse Resp B/P (MAP) Pulse Ox O2 Delivery O2 Flow Rate FiO2 04/19/17 11:57 81 144/79 (100) Room Air 04/19/17 11:00 98.3 18 92 98.3 04/18/17 18:45 2.0 I&O Intake and Output 04/19/17 07:00 Intake Total 600 ml Output Total 425 ml Balance 175 ml Intake Oral 600 ml Output Urine Total 425 ml General: Alert, Oriented X3, Cooperative, No acute distress Abdomen: Soft, Other (lap site dressings dry) Labs Laboratory Tests Test 04/17/17 13:20 04/17/17 17:18 04/17/17 20:50 04/18/17 07:47 Glucose (Fingerstick) 146 mg/dL (70-99) 154 mg/dL (70-99) 147 mg/dL (70-99) 108 mg/dL (70-99) Test 04/18/17 11:44 04/18/17 16:28 04/18/17 21:20 04/19/17 05:00 Glucose (Fingerstick) 125 mg/dL (70-99) 135 mg/dL (70-99) 147 mg/dL (70-99) Hemoglobin 9.3 g/dL (12.0-15.5) Sodium Level 137 mmol/L (136-145) Potassium Level 4.8 mmol/L (3.5-5.1) Chloride Level 100 mmol/L (98-107) Carbon Dioxide Level 29 mmol/L (21-32) Anion Gap 8 (6-14) Blood Urea Nitrogen 56 mg/dL (7-20) Creatinine 6.9 mg/dL (0.6-1.0) Estimated GFR (Cockcroft-Gault) 7.5 Glucose Level 113 mg/dL (70-99) Calcium Level 9.4 mg/dL (8.5-10.1) Phosphorus Level 6.8 mg/dL (2.6-4.7) Magnesium Level 2.5 mg/dL (1.8-2.4) Albumin 3.2 g/dL (3.4-5.0) Test 04/19/17 07:40 04/19/17 10:55 Glucose (Fingerstick) 105 mg/dL (70-99) 153 mg/dL (70-99) Laboratory Tests Test 04/18/17 16:28 04/18/17 21:20 04/19/17 05:00 04/19/17 07:40 Glucose (Fingerstick) 135 mg/dL (70-99) 147 mg/dL (70-99) 105 mg/dL (70-99) Hemoglobin 9.3 g/dL (12.0-15.5) Sodium Level 137 mmol/L (136-145) Potassium Level 4.8 mmol/L (3.5-5.1) Chloride Level 100 mmol/L (98-107) Carbon Dioxide Level 29 mmol/L (21-32) Anion Gap 8 (6-14) Blood Urea Nitrogen 56 mg/dL (7-20) Creatinine 6.9 mg/dL (0.6-1.0) Estimated GFR (Cockcroft-Gault) 7.5 Glucose Level 113 mg/dL (70-99) Calcium Level 9.4 mg/dL (8.5-10.1) Phosphorus Level 6.8 mg/dL (2.6-4.7) Magnesium Level 2.5 mg/dL (1.8-2.4) Albumin 3.2 g/dL (3.4-5.0) Test 04/19/17 10:55 Glucose (Fingerstick) 153 mg/dL (70-99) Problem List Problems Medical Problems: (1) Chest pain Status: Acute Assessment/Plan s/p lap bj ESRD, per renal Problems: RONNA NICOLE APRN Apr 19, 2017 13:18
[2017-04-19] MEDS: ATORVASTATIN CALCIUM 40 MG TABLET. PO SCH (21:20)
[2017-04-20 03:00] VITALS: BP 115/70
[2017-04-20 04:26] LABS: HEMATOCRIT 26.7 % (36.0-47.0); HEMOGLOBIN 8.8 g/dL (12.0-15.5); RED BLOOD COUNT 2.81 x10^6/uL (3.50-5.40); RED CELL DISTRIBUTION WIDTH 13.6 % (11.5-14.5); WHITE BLOOD COUNT 7.1 x10^3/uL (4.0-11.0)
[2017-04-20 04:49] LABS: ALBUMIN 3.1 g/dL (3.4-5.0); CALCIUM 8.7 mg/dL (8.5-10.1); CREATININE 7.5 mg/dL (0.6-1.0); GFR 6.8; POTASSIUM 4.9 mmol/L (3.5-5.1)
[2017-04-20 07:30] VITALS: BP 127/75
[2017-04-20] MEDS: CALCIUM ACETATE 667 MG CAPSULE PO SCH ×3 (08:00→18:37)
[2017-04-20] MEDS: INSULIN ASPART 300 UNITS/3 ML INSULN.PEN SQ SCH ×3 (08:21→17:34)
[2017-04-20] MEDS: SODIUM BICARBONATE 650 MG TABLET. PO SCH ×2 (09:00→18:37)
[2017-04-20 11:00] VITALS: BP 136/85
--- NOTE | 2017-04-20 12:00 | PDOC ---
Renal-Progress Notes Subjective Notes Notes NO CHANGE History of Present Illness Hx of present illness STABLE Vitals Vitals Vital Signs Date Time Temp Pulse Resp B/P (MAP) Pulse Ox O2 Delivery O2 Flow Rate FiO2 04/20/17 11:00 98.0 71 18 136/85 (102) 94 Room Air 98.0 Weight Weight [ ] I.O. Intake and Output Intake and Output 04/20/17 07:00 Intake Total 1280 ml Output Total 725 ml Balance 555 ml Intake Oral 1280 ml Output Urine Total 725 ml # Voids 3 Labs Labs Laboratory Tests Test 04/19/17 17:11 04/19/17 20:51 04/20/17 04:05 04/20/17 07:40 Glucose (Fingerstick) 148 mg/dL (70-99) 108 mg/dL (70-99) 121 mg/dL (70-99) White Blood Count 7.1 x10^3/uL (4.0-11.0) Red Blood Count 2.81 x10^6/uL (3.50-5.40) Hemoglobin 8.8 g/dL (12.0-15.5) Hematocrit 26.7 % (36.0-47.0) Mean Corpuscular Volume 95 fL (79-100) Mean Corpuscular Hemoglobin 31 pg (25-35) Mean Corpuscular Hemoglobin Concent 33 g/dL (31-37) Red Cell Distribution Width 13.6 % (11.5-14.5) Platelet Count 125 x10^3/uL (140-400) Sodium Level 140 mmol/L (136-145) Potassium Level 4.9 mmol/L (3.5-5.1) Chloride Level 102 mmol/L (98-107) Carbon Dioxide Level 30 mmol/L (21-32) Anion Gap 8 (6-14) Blood Urea Nitrogen 69 mg/dL (7-20) Creatinine 7.5 mg/dL (0.6-1.0) Estimated GFR (Cockcroft-Gault) 6.8 Glucose Level 119 mg/dL (70-99) Calcium Level 8.7 mg/dL (8.5-10.1) Phosphorus Level 6.0 mg/dL (2.6-4.7) Magnesium Level 2.4 mg/dL (1.8-2.4) Albumin 3.1 g/dL (3.4-5.0) Test 04/20/17 11:35 Glucose (Fingerstick) 168 mg/dL (70-99) Review of Systems Constitutional: yes: weakness, oriented Ears/Nose/Throat: Yes: no symptom reported Pulmonary: Yes no symptom reported Cardiovascular: Yes no symptom reported Gastrointestional: Yes: constipation Genitourinary: Yes: no symptom reported Musculoskeletal: Yes: muscle stiffness Psychiatric/Neurological: Yes: no symptom reported Physical Exam General Appearance: no apparent distress Skin: warm Respiratory: bilateral CTA Heart: S1S2, no thrills Abdomen: soft, bowel sounds present Genitourinary: bladder flat Neurology: alert Musculoskeletal: Osteoarthritis Assessment Assessment IMP S/P CHOLY ANEMIA ESRD PLAN HD TODAY UF TO MIROSLAVA ESTRADA MD Apr 20, 2017 12:00
--- NOTE | 2017-04-20 13:20 | PDOC ---
Provider Note Provider Note SURG POD 3 no c/o home tomorrow f/u next week DADA LOPEZ MD Apr 20, 2017 13:20
[2017-04-20] MEDS ORDERED: DIALYSIS PATIENT. MC PRN ×2 (14:00)
[2017-04-20] MEDS ORDERED: IV NORMAL SALINE 1000ML BAG 1,000 ML IV PRN ×2 (14:00)
[2017-04-20] MEDS: ISOSORBIDE MONONITRATE ER 30 MG TAB.ER.24H PO SCH (18:00)
--- NOTE | 2017-04-20 18:31 | PDOC ---
PROGRESS NOTES Subjective Subjective seen in dialysis unit Objective Objective Vital Signs Date Time Temp Pulse Resp B/P (MAP) Pulse Ox O2 Delivery O2 Flow Rate FiO2 04/20/17 11:00 98.0 71 18 136/85 (102) 94 Room Air 98.0 Intake and Output 04/20/17 07:00 Intake Total 1280 ml Output Total 725 ml Balance 555 ml Intake Oral 1280 ml Output Urine Total 725 ml # Voids 3 Physical Exam Abdomen: Soft, Other (lap site dressings dry) Heart: Regular rate General: Alert, Oriented X3, Cooperative, No acute distress Lungs: Clear to auscultation MUSCULOSKELETAL: No deformity Neck: Supple Neuro: Normal speech Psych/Mental Status: Mood NL Skin: No breakdown Diagnosis Problem List Problems Medical Problems: (1) Chest pain Status: Acute Assessment Assessment Assessment chest pain ? gall bladder disease,known gall stones htn dm esrd dialysis hyperlipidemia Plan Plan; power restored at home POD #3, Lap cholecystectomy. d/c home today dialysis today, just finished Problems: Plan Plan of Care Problems Medical Problems: (1) Chest pain Status: Acute Comment Review of Relevant I have reviewed the following items ute (where applicable) has been applied. Labs Laboratory Tests Test 04/19/17 20:51 04/20/17 04:05 04/20/17 07:40 04/20/17 11:35 Glucose (Fingerstick) 108 mg/dL (70-99) 121 mg/dL (70-99) 168 mg/dL (70-99) White Blood Count 7.1 x10^3/uL (4.0-11.0) Red Blood Count 2.81 x10^6/uL (3.50-5.40) Hemoglobin 8.8 g/dL (12.0-15.5) Hematocrit 26.7 % (36.0-47.0) Mean Corpuscular Volume 95 fL (79-100) Mean Corpuscular Hemoglobin 31 pg (25-35) Mean Corpuscular Hemoglobin Concent 33 g/dL (31-37) Red Cell Distribution Width 13.6 % (11.5-14.5) Platelet Count 125 x10^3/uL (140-400) Sodium Level 140 mmol/L (136-145) Potassium Level 4.9 mmol/L (3.5-5.1) Chloride Level 102 mmol/L (98-107) Carbon Dioxide Level 30 mmol/L (21-32) Anion Gap 8 (6-14) Blood Urea Nitrogen 69 mg/dL (7-20) Creatinine 7.5 mg/dL (0.6-1.0) Estimated GFR (Cockcroft-Gault) 6.8 Glucose Level 119 mg/dL (70-99) Calcium Level 8.7 mg/dL (8.5-10.1) Phosphorus Level 6.0 mg/dL (2.6-4.7) Magnesium Level 2.4 mg/dL (1.8-2.4) Albumin 3.1 g/dL (3.4-5.0) Medications Current Medications Ergocalciferol (Vitamin D2) 50,000 unit WEEKLY PO ; Start 04/22/17 at 09:00 Info (PHARMACY MONITORING -- do not chart) 1 each PRN DAILY PRN MC SEE COMMENTS ; Start 04/20/17 at 14:00; Status UNV Info (PHARMACY MONITORING -- do not chart) 1 each PRN DAILY PRN MC SEE COMMENTS ; Start 04/20/17 at 14:00; Status UNV Sodium Chloride 1,000 ml @ 400 mls/hr Q2H30M PRN IV PATENCY; Start 04/20/17 at 14:00; Stop 04/21/17 at 01:59 Sodium Chloride 1,000 ml @ 1,000 mls/hr Q1H PRN IV hypotension; Start 04/20/17 at 14:00; Stop 04/20/17 at 19:59 Vitals/I & O Vital Sign - Last 24 Hours 04/19/17 04/19/17 04/19/17 04/19/17 19:30 20:00 21:21 21:22 Temp 98.5 98.5 Pulse 79 79 79 Resp 20 B/P (MAP) 137/81 (99) 137/81 137/81 Pulse Ox 97 O2 Delivery Room Air Room Air 04/19/17 04/19/17 04/20/17 04/20/17 21:24 23:20 03:00 07:30 Temp 98.9 98.5 98.4 98.9 98.5 98.4 Pulse 79 87 74 74 Resp 18 20 18 B/P (MAP) 137/81 109/64 (79) 115/70 (85) 127/75 (92) Pulse Ox 92 95 91 O2 Delivery Room Air Room Air Room Air 04/20/17 04/20/17 08:00 11:00 Temp 98.0 98.0 Pulse 71 Resp 18 B/P (MAP) 136/85 (102) Pulse Ox 94 O2 Delivery Room Air Room Air Intake and Output 04/19/17 04/19/17 04/20/17 15:00 23:00 07:00 Intake Total 1040 ml 240 ml Output Total 500 ml 225 ml Balance 540 ml 15 ml SHANTI CHRISTIAN MD Apr 20, 2017 18:31
[2017-04-20] MEDS: LISINOPRIL 40 MG TABLET. PO SCH (18:37)
[2017-04-20 18:38] VITALS: BP 165/94
[2017-04-20] MEDS: ASPIRIN 325 MG TABLET PO SCH (18:38)
[2017-04-20] MEDS: LABETALOL HCL 200 MG TABLET PO SCH (18:38)
[2017-04-20] MEDS: amLODIPine BESYLATE 5 MG TABLET PO SCH (18:38)
[2017-04-20] MEDS: PANTOPRAZOLE 40 MG TABLET.DR. PO SCH (18:38)
[2017-04-20] MEDS ORDERED: POLYETHYLENE GLYCOL 3350 17 GM PACKET. PO PRN (18:45)
[2017-04-20] MEDS ORDERED: INSU100C4 SQ (18:54)
[2017-04-20] MEDS ORDERED: LISI40TA PO (19:10)
[2017-04-20] MEDS ORDERED: ONDA4TAB7 PO (19:11)
[2017-04-20] MEDS ORDERED: HYDR100T24 PO (19:16)
--- NOTE | 2017-04-21 12:13 | PATHOLOGY ---
PATHOLOGY REPORT * * * * * * * * FINAL DIAGNOSIS: Gallbladder, laparoscopic cholecystectomy: - Cholelithiasis. - Cholesterolosis. - Chronic cholecystitis. COMMENT: There is no evidence of malignancy. (JPM:pit; 04/20/2017) REPORT ELECTRONICALLY SIGNED BY: Eamon Christian M.D. DATE/TIME: 04/20/2017 13:51 * * * * * * * * GROSS PATHOLOGY: Received in formalin labeled "Ratna Darden, gallbladder," is a 7.4 x 2.4 x 2.4 cm, intact gallbladder with dark yellow green, bile stained serosal surfaces. Opening the gallbladder reveals dark yellow green, velvety mucosa, which is nearly completely covered by wallace yellow striations, suggestive of cholesterolosis and an average wall thickness of 0.3 cm. A single, 1.4cm calculus is present and no masses are noted grossly. Profile Saw Setup Operator sections from the body and fundus are submitted along with the proximal margin in cassette A1. (JPM; 04/19/17) INITIAL CPT CODE(S): A; 72547 Professional services [place] [address] Technical services performed by [facility] at [address] [place] [address], [facility] [address] [address]. SPECIMEN(S) RECEIVED: A.Gallbladder CLINICAL HISTORY: Chest pain PATIENT: RATNA DARDEN /AGE: 5 1960 (Age: 57) PATIENT #: [id number] ALT CASE #: SPECIMEN COLLECTION DATE: 04/17/2017 SPECIMEN RECEIVED DATE: 04/19/2017 [facility] - [address] [place] [address] - PHONE: [phone] * * * END OF REPORT * * *
[2017-04-22] MEDS ORDERED: ERGOCALCIFEROL (VITAMIN D2) 50,000 UNIT CAPSULE. PO SCH (09:00)
== END 2017-04-20 19:44 | disposition home or self-care (01) | DRG 417 ==
LOC: ER 08:33 → 2 NORTH 10:33
PROVIDERS: ADMIT Internal Medicine; ATTEND Internal Medicine
PROC: BF121ZZ Fluoroscopy of Gallbladder using Low Osmolar Contrast (ICD-10-PCS; 2017-04-17)
PROC: 5A1D00Z (ICD-10-PCS; 2017-04-17)
PROC: 0FT44ZZ Resection of Gallbladder, Percutaneous Endoscopic Approach (ICD-10-PCS; principal; 2017-04-17 10:00)
DX: K80.20 Calculus of gallbladder without cholecystitis without obstruction (principal); N18.6 End stage renal disease; Z68.41 Body mass index [BMI] 40.0-44.9, adult; I13.2 Hypertensive heart and chronic kidney disease with heart failure and with stage 5 chronic kidney disease, or end stage renal disease; I50.32 Chronic diastolic (congestive) heart failure; D64.9 Anemia, unspecified; E03.9 Hypothyroidism, unspecified; E11.22 Type 2 diabetes mellitus with diabetic chronic kidney disease; E66.9 Obesity, unspecified; E78.00 Pure hypercholesterolemia, unspecified; E78.5 Hyperlipidemia, unspecified; G47.33 Obstructive sleep apnea (adult) (pediatric); J45.909 Unspecified asthma, uncomplicated; K21.9 Gastro-esophageal reflux disease without esophagitis; K66.0 Peritoneal adhesions (postprocedural) (postinfection); Z82.49 Family history of ischemic heart disease and other diseases of the circulatory system; Z83.3 Family history of diabetes mellitus; I25.2 Old myocardial infarction; Z91.19 Patient's noncompliance with other medical treatment and regimen; Z99.2 Dependence on renal dialysis; Z90.710 Acquired absence of both cervix and uterus; Z79.899 Other long term (current) drug therapy
CPT/HCPCS: 36415; 71010; 74300; 80048; 80053; 80069; 82550; 82947; 82962; 83735; 84132; 84484; 85018; 85027; 85610; 86706; 87340; 87341; 88304; 93005; 94250; 94640; 96374; C1769; C1887; J0330; J0690; J0881; J1100; J1610; J1815; J2001; J2270; J2310; J2370; J2405; J2704; J2710; J3010; J3490; J7030; J7613; Q9967; S0028; 99285-25

== ENCOUNTER → 2017-11-10 | Outpatient (CLI) | payer MEDICARE, BC | END | disposition home or self-care (01) | LOC: MAMMO 08:41 | DX: Z12.31 Encounter for screening mammogram for malignant neoplasm of breast (principal) | CPT/HCPCS: 77063; 77067 ==

== ENCOUNTER → 2017-11-22 | Day surgery (SDC) | payer BC, MEDICARE ==
[~2017-11-22] MED LIST changes: -AMLO1TAB95 PO; -AMLO5TAB2 PO; -ASPI325T8 PO; -ATOR40TA59 PO; -CALC667C6 PO; -CEPH-264 PO; -CLON1PAT2 TD; -ERGO500027 PO; -FURO40TA4 PO; -HYDR-2868 PO; -HYDR-2869 PO; -ISOS30TA4 PO; -LABE200T2 PO; +MIDAZOLAM HCL/PF 5 MG/5 ML VIAL.; -OLME40TA12 PO; -OMEP40CA5 PO; -OXYC-323 PO; -POTASSIUM CHLO10 MEQ PO; -PROAIR HFA8.5 GM INH; -SITA100T PO; -SITA50TA PO; -SODI650T PO; -TRAM50TA PO; -[UNRECOGNIZED DRUG - REMARK]; +diphenhydrAMINE 50 MG/ML VIAL; +fentaNYL PF VIAL 100 MCG/2 ML VIAL
[2017-11-22 10:17] LABS: POC GLUCOSE 89 mg/dL (70-99)
[2017-11-22] MEDS: IV NORMAL SALINE 1000ML BAG 1,000 ML IV ×2 (10:30)
[2017-11-22] MEDS: fentaNYL PF VIAL 100 MCG/2 ML VIAL IV ×12 (11:13→12:03)
[2017-11-22] MEDS: MIDAZOLAM HCL/PF 5 MG/5 ML VIAL. IV ×14 (11:13→12:03)
[2017-11-22] MEDS: diphenhydrAMINE 50 MG/ML VIAL IV ×2 (11:13)
== END | disposition home or self-care (01) ==
LOC: SURG 09:19
DX: Z12.11 Encounter for screening for malignant neoplasm of colon (principal); I13.0 Hypertensive heart and chronic kidney disease with heart failure and stage 1 through stage 4 chronic kidney disease, or unspecified chronic kidney disease; I50.9 Heart failure, unspecified; N18.9 Chronic kidney disease, unspecified; E11.22 Type 2 diabetes mellitus with diabetic chronic kidney disease; E78.00 Pure hypercholesterolemia, unspecified; E66.9 Obesity, unspecified; D64.9 Anemia, unspecified; E03.9 Hypothyroidism, unspecified; Z90.49 Acquired absence of other specified parts of digestive tract; Z79.899 Other long term (current) drug therapy; Z86.69 Personal history of other diseases of the nervous system and sense organs; Z98.890 Other specified postprocedural states; Z90.710 Acquired absence of both cervix and uterus; Z87.39 Personal history of other diseases of the musculoskeletal system and connective tissue; Z86.39 Personal history of other endocrine, nutritional and metabolic disease
CPT/HCPCS: 45385; 82962; 88305; G0500; J1200; J2250; J3010

== ENCOUNTER → 2017-12-20 | Day surgery (SDC) | payer MEDICARE, BC ==
[~2017-12-20] MED LIST changes: +LIDOCAINE 1% PF 2 ML VIAL. ID; +LIDOCAINE 2% 100 MG/5 ML SYRINGE.; +MIDAZOLAM HCL/PF 2 MG/2 ML VIAL. IV; -MIDAZOLAM HCL/PF 5 MG/5 ML VIAL.; +PROPOFOL 40 ML IV; -diphenhydrAMINE 50 MG/ML VIAL; -fentaNYL PF VIAL 100 MCG/2 ML VIAL; +fentaNYL PF VIAL 100 MCG/2 ML VIAL IV
[2017-12-20] MEDS: IV NORMAL SALINE 1000ML BAG 1,000 ML IV (11:35)
[2017-12-20 11:41] LABS: POC GLUCOSE 93 mg/dL (70-99)
== END | disposition home or self-care (01) ==
LOC: SURG 10:45
DX: Z12.11 Encounter for screening for malignant neoplasm of colon (principal); K57.30 Diverticulosis of large intestine without perforation or abscess without bleeding; K63.5 Polyp of colon; E11.22 Type 2 diabetes mellitus with diabetic chronic kidney disease; I12.0 Hypertensive chronic kidney disease with stage 5 chronic kidney disease or end stage renal disease; N18.6 End stage renal disease; E03.9 Hypothyroidism, unspecified; E78.5 Hyperlipidemia, unspecified; E66.01 Morbid (severe) obesity due to excess calories; Z99.2 Dependence on renal dialysis; Z90.710 Acquired absence of both cervix and uterus; Z98.890 Other specified postprocedural states; Z79.899 Other long term (current) drug therapy; Z88.8 Allergy status to other drugs, medicaments and biological substances; Z68.41 Body mass index [BMI] 40.0-44.9, adult; M19.079 Primary osteoarthritis, unspecified ankle and foot; Z90.49 Acquired absence of other specified parts of digestive tract; G47.30 Sleep apnea, unspecified
CPT/HCPCS: 45385; 82962; J2704

== ENCOUNTER 2018-08-03 13:14 | Observation (INO) | payer MEDICARE, BC ==
[~2018-08-03] VITALS: Ht 157.5 cm; Wt 101.6 kg
[~2018-08-03 13:14] MED LIST changes: +ALBU2.5V8 INH; +AMLO1TAB95 PO; +AMLO5TAB7 PO; +ASPI325T8 PO; +ATOR40TA59 PO; +CALC667C6 PO; +CEPH-264 PO; +CLON1PAT2 TD; +ERGO500027 PO; +FURO40TA4 PO; +HYDR-2868 PO; +HYDR-2869 PO; +HYDR100T24 PO; +INSU100C4 SQ; +ISOS30TA4 PO; +LABE200T4 PO; -LIDOCAINE 1% PF 2 ML VIAL. ID; -LIDOCAINE 2% 100 MG/5 ML SYRINGE.; +LISI-130 PO; -MIDAZOLAM HCL/PF 2 MG/2 ML VIAL. IV; +OLME40TA12 PO; +OMEP40CA5 PO; +ONDA4TAB7 PO; +OXYC1TAB15 PO; +POTA10TA12 PO; -PROPOFOL 40 ML IV; +SEVE800T9 PO; +SITA100T PO; +SITA1TAB7 PO; +SITA50TA PO; +SODI650T PO; +TRAM50TA PO; +[UNRECOGNIZED DRUG - REMARK]; -fentaNYL PF VIAL 100 MCG/2 ML VIAL IV
--- NOTE | 2018-08-03 13:39 | EKG ---
[facility] [address] [place] [address] Test Date: 2018-08-03 Test Time: 13:24:36 Pat Name: HUANG DARDEN Department: Room: Gender: F Lace Stripper: : 1960 Requested By: ERICKSON MAHAJAN Order Number: [id number] Reading MD: Harshal Bangura MD Measurements Intervals [place] Rate: 73 P: 13 LA: 182 QRS: 34 QRSD: 102 T: 28 QT: 416 QTc: 462 Interpretive Statements SINUS RHYTHM NON-SPECIFIC ST/T CHANGES Electronically Signed On 08-03-2018 17:59:25 STRING STUDIES DIRECTOR by Harshal Bangura MD
[2018-08-03 13:44] LABS: BASO # 0.1 x10^3/uL (0.0-0.2); BASO % 1 % (0-3); EOS # 0.3 x10^3/uL (0.0-0.7); EOS % 3 % (0-3); HEMATOCRIT 33.6 % (36.0-47.0); HEMOGLOBIN 11.4 g/dL (12.0-15.5); LYMPH # 1.2 x10^3/uL (1.0-4.8); LYMPH % 14 % (24-48); MEAN CORPUSCULAR HEMOGLOBIN 33 pg (25-35); MEAN CORPUSCULAR HGB CONC 34 g/dL (31-37); MEAN CORPUSCULAR VOLUME 98 fL (79-100); MONO # 0.6 x10^3/uL (0.0-1.1); MONO % 7 % (0-9); NEUT # 6.2 x10^3uL (1.8-7.7); NEUT % 75 % (31-73); PLATELET COUNT 168 x10^3/uL (140-400); RED BLOOD COUNT 3.45 x10^6/uL (3.50-5.40); RED CELL DISTRIBUTION WIDTH 13.2 % (11.5-14.5); WHITE BLOOD COUNT 8.3 x10^3/uL (4.0-11.0)
[2018-08-03 13:55] LABS: CALCIUM 9.7 mg/dL (8.5-10.1); GFR 8.8; POTASSIUM 4.1 mmol/L (3.5-5.1)
[2018-08-03 14:01] LABS: ALBUMIN 3.7 g/dL (3.4-5.0); ALBUMIN/GLOBULIN RATIO 0.6 (1.0-1.7); TOTAL BILIRUBIN 0.8 mg/dL (0.2-1.0); TOTAL PROTEIN 9.4 g/dL (6.4-8.2)
[2018-08-03] MEDS ORDERED: ONDANSETRON PF 4 MG/2 ML VIAL. IV PRN (14:15)
[2018-08-03] MEDS ORDERED: NITROGLYCERIN SUBLINGUAL 0.4 MG BOTTLE OF 25. SL PRN (14:15)
[2018-08-03] MEDS ORDERED: ACETAMINOPHEN 325 MG TABLET. PO PRN (14:15)
--- NOTE | 2018-08-03 14:53 | PHYS DOC ---
Past Medical History Past Medical History: Diabetes-Type II, High Cholesterol, Hypertension, VT, Renal Failure, Other Additional Past Medical Histor: ESRD, enlarged heart, sleep apnea- uses cpap, obesity Past Surgical History: , Hysterectomy, Tonsillectomy Alcohol Use: None Drug Use: None Adult General Chief Complaint Chief Complaint: CHEST PAIN HPI HPI Patient is a 58 year old female who presents with sudden onset of right-sided chest pain when she was finished with dialysis today. The patient states that the pain radiated up into her neck. She denies shortness of breath or abdominal pain. Review of Systems Review of Systems Constitutional: Denies fever or chills [] Eyes: Denies change in visual acuity, redness, or eye pain [] HENT: Denies nasal congestion or sore throat [] Respiratory: Denies cough or shortness of breath [] Cardiovascular: No additional information not addressed in HPI [] GI: Denies abdominal pain, nausea, vomiting, bloody stools or diarrhea [] : Denies dysuria or hematuria [] Musculoskeletal: Denies back pain or joint pain [] Integument: Denies rash or skin lesions [] Neurologic: Denies headache, focal weakness or sensory changes [] Endocrine: Denies polyuria or polydipsia [] All other systems were reviewed and found to be within normal limits, except as documented in this note. Current Medications Current Medications Allergies Allergies Allergies Coded Allergies Type Severity Reaction Last Updated Verified lisinopril Allergy Intermediate 12/20/17 Yes Physical Exam Physical Exam Constitutional: Well developed, well nourished, no acute distress, non-toxic appearance. [] HENT: Normocephalic, atraumatic, bilateral external ears normal, oropharynx moist, no oral exudates, nose normal. [] Eyes: PERRLA, EOMI, conjunctiva normal, no discharge. [] Neck: Normal range of motion, no tenderness, supple, no stridor. [] Cardiovascular:Heart rate regular rhythm, no murmur [] Lungs & Thorax: Bilateral breath sounds clear to auscultation [] Abdomen: Bowel sounds normal, soft, no tenderness, no masses, no pulsatile masses. [] Skin: Warm, dry, no erythema, no rash. [] Neurologic: Alert and oriented X 3, normal motor function, normal sensory function, no focal deficits noted. [] Psychologic: Affect normal, judgement normal, mood normal. [] Current Patient Data Vital Signs Vital Signs Date Time Temp Pulse Resp B/P (MAP) Pulse Ox O2 Delivery O2 Flow Rate FiO2 08/03/18 14:00 75 16 93/58 (70) 100 Room Air 08/03/18 13:23 98.6 98.6 Lab Values Laboratory Tests Test 08/03/18 13:30 White Blood Count 8.3 x10^3/uL (4.0-11.0) Red Blood Count 3.45 x10^6/uL (3.50-5.40) L Hemoglobin 11.4 g/dL (12.0-15.5) L Hematocrit 33.6 % (36.0-47.0) L Mean Corpuscular Volume 98 fL (79-100) Mean Corpuscular Hemoglobin 33 pg (25-35) Mean Corpuscular Hemoglobin Concent 34 g/dL (31-37) Red Cell Distribution Width 13.2 % (11.5-14.5) Platelet Count 168 x10^3/uL (140-400) Neutrophils (%) (Auto) 75 % (31-73) H Lymphocytes (%) (Auto) 14 % (24-48) L Monocytes (%) (Auto) 7 % (0-9) Eosinophils (%) (Auto) 3 % (0-3) Basophils (%) (Auto) 1 % (0-3) Neutrophils # (Auto) 6.2 x10^3uL (1.8-7.7) Lymphocytes # (Auto) 1.2 x10^3/uL (1.0-4.8) Monocytes # (Auto) 0.6 x10^3/uL (0.0-1.1) Eosinophils # (Auto) 0.3 x10^3/uL (0.0-0.7) Basophils # (Auto) 0.1 x10^3/uL (0.0-0.2) Sodium Level 141 mmol/L (136-145) Potassium Level 4.1 mmol/L (3.5-5.1) Chloride Level 102 mmol/L (98-107) Carbon Dioxide Level 24 mmol/L (21-32) Anion Gap 15 (6-14) H Blood Urea Nitrogen 30 mg/dL (7-20) H Creatinine 6.0 mg/dL (0.6-1.0) H Estimated GFR (Cockcroft-Gault) 8.8 BUN/Creatinine Ratio 5 (6-20) L Glucose Level 124 mg/dL (70-99) H Calcium Level 9.7 mg/dL (8.5-10.1) Total Bilirubin 0.8 mg/dL (0.2-1.0) Aspartate Amino Transferase (AST) 17 U/L (15-37) Alanine Aminotransferase (ALT) 19 U/L (14-59) Alkaline Phosphatase 108 U/L (46-116) Troponin I Quantitative 0.076 ng/mL (0.000-0.055) Total Protein 9.4 g/dL (6.4-8.2) H Albumin 3.7 g/dL (3.4-5.0) Albumin/Globulin Ratio 0.6 (1.0-1.7) L Laboratory Tests 08/03/18 13:30 Laboratory Tests 08/03/18 13:30 EKG EKG [] Radiology/Procedures Radiology/Procedures [] Course & Med Decision Making Course & Med Decision Making Pertinent Labs and Imaging studies reviewed. (See chart for details) []After arrival patient was rating her pain is 0 out of 10. Her troponin is slightly elevated and she will be admitted to Dr. Echevarria for serial enzymes. Dragon Disclaimer Dragon Disclaimer This electronic medical record was generated, in whole or in part, using a voice recognition dictation system. Departure Departure Impression: Primary Impression: Chest pain Additional Impression: Elevated troponin Disposition: ADMITTED INPATIENT Admitting Physician: Shanti Echevarria Condition: GOOD Referrals: SHANTI ECHEVARRIA MD (PCP) Problem Qualifiers ERICKSON MAHAJAN APRN Aug 03, 2018 14:53 GISSELL TREVINO MD Aug 03, 2018 15:29
--- NOTE | 2018-08-03 15:24 | PDOC2 ---
CARDIAC CONSULT DATE OF CONSULT Date of Consult DATE: 08/03/18 TIME: 15:18 REASON FOR CONSULT Reason for Consult: Elevated troponin REFERRING PHYSICIAN Referring Physician: Dr. Buckner SOURCE Source: Chart review, Patient HISTORY OF PRESENT ILLNESS HISTORY OF PRESENT ILLNESS This is a 58 yo female, know to our service from outpatient clinic, who presented with complaints of chest pain. Pain began about an hour into dialysis today. Located in her central to right chest. Describes to burning/aching. Radiated up to her right neck. Associated with mild SOA. No dizziness, diaphoresis, palpitations, or nausea.vomiting. No recent PND or orthopnea. Took Tylenol initially with no improvement. Thought pain possibly felt GERD-like so she took TUMS. Pain resolved and then later returned. Did not that BP was dropping in HD; is presently stable. No further CP since arrival. Is ESRD with HD Wednesday, Wednesday, and Wednesday. Reports compliance with medications and HD. Chest pain is reproducible with palpation to central chest. PAST MEDICAL HISTORY Past Medical History Cardiovascular: CHF (diastolic dysfunction), HTN, Hyperlipidemia Pulmonary: Asthma, SOLEDAD with CPAP intolerance CENTRAL NERVOUS SYSTEM: Other (No pertinent history) GI: GERD Heme/Onc: No pertinent hx Musculoskeletal: Osteoarthritis Renal/: ESRD on HD Endocrine: Diabetes (2), subclinical hypothyroidism, obesity PAST SURGICAL HISTORY Past Surgical History Tonsillectomy, Cholecystectomy, Hysterectomy, Carpal tunnel release, left AV graft placement, [facility] 08/2016 FAMILY HISTORY Family History: Diabetes SOCIAL HISTORY Social History Smoke: No ALCOHOL: none Drugs: None Lives: with Family ALLERGIES ALLERGIES: Coded Allergies: lisinopril (Verified Allergy, Intermediate, 12/20/17) cough ROS Review of System 14 point ROS conducted with pertinent positives noted above in HPI. PHYSICAL EXAM PHYSICAL EXAM General: Alert, Oriented X3, Cooperative, No acute distress HEENT: Atraumatic, Mucous membr. moist/pink Lungs: Clear to auscultation, Normal air movement, (tenderness upon palpation of central chest) Heart: Regular rate (SR), Normal S1, Normal S2, No murmurs Abdomen: Soft, Other (epigastric tenderness) Extremities: No cyanosis, Other (trace bilateral LE edema; LAV dialysis fistula + for thrill and bruit) Skin: No breakdown, No significant lesion Neuro: Normal speech, Sensation intact Psych/Mental Status: Mental status NL, Mood NL MUSCULOSKELETAL: Osteoarthritic changes both hands VITALS VITALS Vital Signs Date Time Temp Pulse Resp B/P (MAP) Pulse Ox O2 Delivery O2 Flow Rate FiO2 08/03/18 14:00 75 16 93/58 (70) 100 Room Air 08/03/18 13:23 98.6 98.6 LABS Lab: Laboratory Tests Test 08/03/18 13:30 White Blood Count 8.3 x10^3/uL (4.0-11.0) Red Blood Count 3.45 x10^6/uL (3.50-5.40) Hemoglobin 11.4 g/dL (12.0-15.5) Hematocrit 33.6 % (36.0-47.0) Mean Corpuscular Volume 98 fL (79-100) Mean Corpuscular Hemoglobin 33 pg (25-35) Mean Corpuscular Hemoglobin Concent 34 g/dL (31-37) Red Cell Distribution Width 13.2 % (11.5-14.5) Platelet Count 168 x10^3/uL (140-400) Neutrophils (%) (Auto) 75 % (31-73) Lymphocytes (%) (Auto) 14 % (24-48) Monocytes (%) (Auto) 7 % (0-9) Eosinophils (%) (Auto) 3 % (0-3) Basophils (%) (Auto) 1 % (0-3) Neutrophils # (Auto) 6.2 x10^3uL (1.8-7.7) Lymphocytes # (Auto) 1.2 x10^3/uL (1.0-4.8) Monocytes # (Auto) 0.6 x10^3/uL (0.0-1.1) Eosinophils # (Auto) 0.3 x10^3/uL (0.0-0.7) Basophils # (Auto) 0.1 x10^3/uL (0.0-0.2) Sodium Level 141 mmol/L (136-145) Potassium Level 4.1 mmol/L (3.5-5.1) Chloride Level 102 mmol/L (98-107) Carbon Dioxide Level 24 mmol/L (21-32) Anion Gap 15 (6-14) Blood Urea Nitrogen 30 mg/dL (7-20) Creatinine 6.0 mg/dL (0.6-1.0) Estimated GFR (Cockcroft-Gault) 8.8 BUN/Creatinine Ratio 5 (6-20) Glucose Level 124 mg/dL (70-99) Calcium Level 9.7 mg/dL (8.5-10.1) Total Bilirubin 0.8 mg/dL (0.2-1.0) Aspartate Amino Transf (AST/SGOT) 17 U/L (15-37) Alanine Aminotransferase (ALT/SGPT) 19 U/L (14-59) Alkaline Phosphatase 108 U/L (46-116) Troponin I Quantitative 0.076 ng/mL (0.000-0.055) Total Protein 9.4 g/dL (6.4-8.2) Albumin 3.7 g/dL (3.4-5.0) Albumin/Globulin Ratio 0.6 (1.0-1.7) ECHOCARDIOGRAM ECHOCARDIOGRAM <Conclusion> There is moderate concentric left ventricular hypertrophy. The left ventricular systolic function is normal and the ejection fraction is within normal range. The Ejection Fraction is 60-65%. There is normal LV segmental wall motion. No significant valvular disease. DATE: 04/24/16 1639 STRESS TEST STRESS TEST Conclusion 1. Regadenoson cardioisotope stress test did not show any evidence of ischemia or infarct. 2. Normal left ventricular systolic function with ejection fraction calculated at 75%. 3. Low risk for cardiac events. DATE: 09/19/15 1335 HEART CATH HEART CATH CORONARY ANGIOGRAPHY: LM is a large caliber vessel with normal angiographic appearance. LAD is a large caliber vessel with normal angiographic appearance. D1 is a moderate caliber vessel with normal angiographic appearance. Ramus is a moderate caliber vessel with normal angiographic apeparance. LCx is a moderate caliber non-dominant vessel with normal angiographic appearance. OM1 is a moderate caliber vessel with normal angiographic appearance. RCA is a large caliber dominant vessel with normal angiographic appearance. RPDA is a moderate caliber vessel with normal angiographic appearance. Conclusion 1. Elevated left sided filling pressures. 2. Normal angiographic appearance of the coronary arteries. 3. Subclavian tortuosity. Recommendations Aggressive Medical Therapy DATE: 09/25/16 1541 ASSESSMENT/PLAN ASSESSMENT/PLAN 1. Chest pain, non-cardiac; Initial troponin 0.076 in the setting of ESRD- known for chronic troponin elevation. Cath 08/2016 with normal coronaries LV systolic function. Pain likely MSK/GERD in origin 2. Hypertension; low-normotensive 3. ESRD; had HD today 4. Chronic diastolic CHF; clinically well-compensated. 5. SOLEDAD: noncompliant with CPAP 6. Diabetes,II 7. Dyslipidemia 8. GERD Recommendations Continue with primary, secondary preventions Fluid off loading per HD PPI. No further cardiac workup warranted at this time ESTEFANY BETANCOURT APRN Aug 03, 2018 15:24
[2018-08-03] MEDS ORDERED: SITA50TA PO (16:36)
[2018-08-03] MEDS ORDERED: DEXTROSE 50% 25 GM / 50ML DISP.SYRIN. IV PRN (18:00)
[2018-08-03] MEDS ORDERED: NON FORMULARY ITEM (Albuterol Sulfate (Proair Hfa Inhaler) 1 PUFF) INH PRN (18:15)
[2018-08-03] MEDS ORDERED: ONDANSETRON ODT 4 MG TAB.RAPDIS. PO PRN (18:30)
[2018-08-03 19:00] VITALS: BP 126/99
[2018-08-03] MEDS: ALBUTEROL SULFATE 2.5 MG/3 ML NEBU. NEB PRN (20:04)
[2018-08-03] MEDS: LABETALOL HCL 200 MG TABLET PO SCH (20:40)
[2018-08-03] MEDS: SODIUM BICARBONATE 650 MG TABLET. PO SCH (20:40)
[2018-08-03] MEDS ORDERED: ATORVASTATIN CALCIUM 40 MG TABLET. PO SCH (21:00)
[2018-08-03 23:06] VITALS: BP 104/70
[2018-08-04 03:06] VITALS: BP 122/77
[2018-08-04] MEDS ORDERED: PANTOPRAZOLE 40 MG TABLET.DR. PO SCH (07:30)
[2018-08-04] MEDS: ALBUTEROL SULFATE 2.5 MG/3 ML NEBU. NEB PRN (07:52)
[2018-08-04 08:00] VITALS: BP 112/69
[2018-08-04] MEDS ORDERED: CALCIUM ACETATE 667 MG CAPSULE PO SCH (08:00)
[2018-08-04] MEDS ORDERED: ASPIRIN 325 MG TABLET PO SCH (08:00)
[2018-08-04] MEDS: INSULIN LISPRO 300 UNITS/3 ML INSULN.PEN. SQ SCH ×2 (08:00→12:00)
[2018-08-04] MEDS: SODIUM BICARBONATE 650 MG TABLET. PO SCH ×2 (08:39→14:00)
[2018-08-04] MEDS: LABETALOL HCL 200 MG TABLET PO SCH (08:40)
[2018-08-04] MEDS ORDERED: amLODIPine BESYLATE 5 MG TABLET PO SCH (09:00)
[2018-08-04] MEDS ORDERED: LINAGLIPTIN 5 MG TABLET PO SCH (09:00)
[2018-08-04] MEDS ORDERED: LOSARTAN POTASSIUM 50 MG TABLET. PO SCH (09:00)
--- NOTE | 2018-08-04 10:36 | PDOC ---
Provider Note Provider Note Pt seen.H&P dictated. #[id number] SHANTI CHRISTIAN MD Aug 04, 2018 10:36
[2018-08-04 11:00] VITALS: BP 114/71
--- NOTE | 2018-08-04 11:11 | HP ---
ADMIT DATE: 08/03/2018 LOCATION: 270. REASON FOR ADMISSION TO THE HOSPITAL: Chest pain. The patient's risk factors including diabetes, hypertension. End-stage renal disease, on dialysis. HISTORY OF PRESENT ILLNESS: The patient is a 58-year-old female. The patient has history of hypertension, diabetes, hyperlipidemia, renal disease, on dialysis for at least a couple of years now. She was having chest pain in the center of the chest, sometimes going to the right, came to the Emergency Room. EKG was negative. Troponin was slightly elevated to 0.076, was admitted to the hospital. The patient got some nitro, she felt better. PAST MEDICAL HISTORY: Diabetes. The patient is off medications now, hypertension, hyperlipidemia, renal failure, dialysis. PAST SURGICAL HISTORY: Gallbladder surgery, AV shunt for dialysis, , hysterectomy, tonsillectomy. ALLERGIES: LISINOPRIL CAUSES A COUGH. MEDICATIONS AT HOME: Albuterol 2 puffs 4 times a daily. Kayley 5/40 one twice daily, aspirin 325 daily, atorvastatin 40 mg daily, clonidine 0.1 patch weekly, TTS 2 patch weekly, clonidine. Vitamin D 50,000 once a week, labetalol 200 mg twice a day, omeprazole 40 mg daily, Zofran for nausea p.r.n. 4 mg, Renvela 800 mg 3 tablets 3 times daily. Januvia 50 mg daily, sodium bicarbonate 650 mg 3 times daily. PERSONAL HISTORY: Denies smoking, alcohol or drug abuse. FAMILY HISTORY: Positive for diabetes, heart disease. REVIEW OF SYSTEMS: CARDIAC: Except for the pain, she feels better, no GERD, no vomiting, no fever. Rest of the 14-systems reviewed and negative. PHYSICAL EXAMINATION: GENERAL: The patient is not in any distress. She is anxious to go home today. VITAL SIGNS: Temperature 98, pulse 81, respirations 15, blood pressure 130/85, 97 on room air. HEENT: Head is atraumatic. Pupils equal. Oral cavity: No congestion. NECK: Supple. Thyroid not enlarged. JVD not elevated. CHEST: Symmetrical, slight tenderness across the chondral junction. LUNGS: Clear. ABDOMEN: Soft, no mass palpable. EXTERNAL GENITALIA: No Ramos. RECTAL: Deferred. EXTREMITIES: No calf tenderness. Pulses 1+. AV shunt in the left arm. LABORATORY DATA: Shows a white count of 8, hemoglobin 11.4, platelets 168. Electrolytes show sodium 141, potassium 4.1, chloride 102, bicarbonate 24, BUN 30, creatinine 6.0. Glucose 124. LFTs were normal. Troponin was 0.076 and peaked to 0.084 and coming down to 0.066. Glucose 94. FINAL IMPRESSION: 1. Chest pain, looks like more of a skeletomuscular. 2. End-stage renal disease, on hemodialysis. 3. Diabetes, off medications now. Sugars are controlled. 4. Hypertension. 5. Hyperlipidemia. 6. Possible costochondral inflammation. PLAN: At this time, admit to hospital, seen by cardiology. Cardiac enzymes, echocardiogram, chest x-ray. If she is feeling better, could be discharged home and follow as outpatient. The patient had a cardiac catheterization 2 years ago, shows normal coronaries. Stress test, echo was good 2 years ago, stress test was last year. SHANTI CHRISTIAN MD DR: TONIA/leatha JOB#: [id number] / [id number]
--- NOTE | 2018-08-04 11:37 | CARD ---
MR#: [id number] Date of Study: 08/04/2018 Ordering Physician: SHANTI CHRISTIAN, Referring Physician: SHANTI CHRISTIAN, Tech: Aleksandra Lux [facility] APPROVED REPORT EXAM: Two-dimensional and M-mode echocardiogram with Doppler and color Doppler. Other Information Quality : Technically LimitedHR: 62bpm Rhythm : NSRTechnically limited study due to body habitus. INDICATION Elevated Troponin 2D DIMENSIONS RVDd3.5 (2.9-3.5cm)Left Atrium(2D)3.1 (1.6-4.0cm) IVSd1.6 (0.7-1.1cm)Aortic Root(2D)4.0 (2.0-3.7cm) LVDd4.3 (3.9-5.9cm)LVOT Diameter2.2 (1.8-2.4cm) PWd1.3 (0.7-1.1cm)LVDs2.0 (2.5-4.0cm) FS (%) 54.1 %SV69.1 ml LVEF(%)85.2 (>50%) M-Mode DIMENSIONS Left Atrium(MM)3.08 (2.5-4.0cm)IVSd1.57 (0.7-1.1cm) Aortic Root3.90 (2.2-3.7cm)LVDd4.17 (4.0-5.6cm) PWd1.47 (0.7-1.1cm)FS (%) 41 % LVDs2.46 (2.0-3.8cm)ESV(Teich)21.5 ml LVEF(%)72 (>50%) Aortic Valve AoV Peak Hari.199.9cm/sAoV VTI34.7cm AO Peak GR.16.0mmHgLVOT Peak Hari.128.6cm/s AO Mean GR.7mmHgAVA (VMAX)2.42cm2 RUFINO (VTI)2.46dv9PF P 1/2 Pbza1959dq Mitral Valve MV E Vrnmwalm59.4cm/sMV E Peak Gr.3mmHg MV DECEL [id number] A Iylsncxu41.2cm/s MV E Mean Gr.1mmHgE/A Ratio1.1 MV A [id number] Pulmonary Valve PV Peak Awapoiir23.5cm/s LEFT VENTRICLE The left ventricle is normal size. There is moderate concentric left ventricular hypertrophy. The lef t ventricular systolic function is normal and the ejection fraction is within normal range. The Eject ion Fraction is 65-70%. There is normal LV segmental wall motion. Transmitral Doppler flow pattern is Grade II-pseudonormal filling dynamics. RIGHT VENTRICLE The right ventricle is normal size. There is normal right ventricular wall thickness. The right ventr icular systolic function is normal. ATRIA The left atrium size is normal. The right atrium size is normal. The interatrial septum is intact wit h no evidence for an atrial septal defect or patent foramen ovale as noted on 2-D or Doppler imaging. AORTIC VALVE The aortic valve is trileaflet. The aortic valve is normal in structure and function. Doppler and Col or Flow revealed mild aortic regurgitation. There is no significant aortic valvular stenosis. MITRAL VALVE The mitral valve is thickened but opens well. There is no evidence of mitral valve prolapse. There is no mitral valve stenosis. Doppler and Color-flow revealed trace mitral regurgitation. TRICUSPID VALVE The tricuspid valve is normal in structure and function. Doppler and Color Flow revealed no tricuspid valve regurgitation noted. There is no tricuspid valve prolapse or vegetation. There is no tricuspid valve stenosis. PULMONIC VALVE Pulmonic valve not well visualized. GREAT VESSELS The aortic root is mildly enlarged. The ascending aorta is Mildly dilated. PERICARDIAL EFFUSION There is no evidence of significant pericardial effusion. Fat pad noted. Critical Notification Critical Value: No <Conclusion> The left ventricular systolic function is normal and the ejection fraction is within normal range. Th e Ejection Fraction is 65-70%. There is normal LV segmental wall motion. The aortic root is mildly enlarged. The ascending aorta is Mildly dilated. Signed by : Harshal Bangura, Electronically Approved : 08/04/2018 11:36:37
--- NOTE | 2018-08-04 13:20 | RAD ---
Chest, 2 views, 08/04/2018: HISTORY: Chest pain Comparison is made to a study from 04/15/2017. The heart is enlarged. There is mild tortuosity of the thoracic aorta. The pulmonary vascularity is normal. There is minimal linear scarring or atelectasis laterally in the left midlung. No acute infiltrate is seen. There is no evidence of pleural fluid or pneumothorax. IMPRESSION: 1. Cardiomegaly and aortic atherosclerosis. 2. Minimal linear scarring or atelectasis on the left. Electronically signed by: Marcus Hillman MD (08/04/2018 1:17 PM) [facility]
[2018-08-04] MEDS ORDERED: SEVELAMER CARBONATE 800 MG TABLET. PO SCH (19:00)
[2018-08-06] MEDS ORDERED: cloNIDine TTS-2 1 PATCH PATCH TD SCH (09:00)
[2018-08-08] MEDS ORDERED: ERGOCALCIFEROL (VITAMIN D2) 50,000 UNIT CAPSULE. PO SCH (09:00)
--- NOTE | 2018-08-08 19:43 | PDOC ---
Provider Note Provider Note Discharge summary dictated. #[id number]. SHANTI CHRISTIAN MD Aug 08, 2018 19:43
--- NOTE | 2018-08-08 21:56 | DS ---
DATE OF DISCHARGE: 08/04/2018 REASON FOR ADMISSION TO THE HOSPITAL: Chest pain, mostly right-sided chest. CONSULTATIONS: Dr. Kent. PROCEDURES DONE: Echocardiogram. HOSPITAL COURSE: The patient is a 58-year-old female with a history of diabetes, hypertension and renal disease on dialysis. She was having chest pain and came to the Emergency Room. Troponin was just borderline elevation; had a cardiac catheterization 3 years ago, normal coronaries; had a stress test 2 years ago was negative and echo last year was good. The patient was admitted to the hospital, seen by Cardiology and echocardiogram shows a good left ventricular function 70%, normal left ventricular function. Troponin was 0.084 trending down to 0.066 and the patient was discharged home. FINAL DIAGNOSES: 1. Noncardiac chest pain. Skeleton muscular pain. 2. End-stage renal disease on hemodialysis. 3. Slight bump in troponin secondary to chronic kidney disease. 4. Hypertension. 5. Hyperlipidemia. 6. Diabetes type 2. DISPOSITION: Home. See [facility] for additional medications. SHANTI CHRISTIAN MD DR: TONIA/leatha JOB#: [id number] / [id number] [place]
== END 2018-08-04 14:40 | disposition home or self-care (01) ==
LOC: ER 13:14 → CVICU 14:07
PROVIDERS: ADMIT Internal Medicine; ATTEND Internal Medicine
DX: R07.89 Other chest pain (principal); I13.2 Hypertensive heart and chronic kidney disease with heart failure and with stage 5 chronic kidney disease, or end stage renal disease; I50.32 Chronic diastolic (congestive) heart failure; E11.22 Type 2 diabetes mellitus with diabetic chronic kidney disease; N18.6 End stage renal disease; E78.5 Hyperlipidemia, unspecified; E03.9 Hypothyroidism, unspecified; G47.33 Obstructive sleep apnea (adult) (pediatric); J45.909 Unspecified asthma, uncomplicated; K21.9 Gastro-esophageal reflux disease without esophagitis; Z83.3 Family history of diabetes mellitus; Z90.710 Acquired absence of both cervix and uterus; Z91.19 Patient's noncompliance with other medical treatment and regimen; Z88.8 Allergy status to other drugs, medicaments and biological substances; Z99.2 Dependence on renal dialysis
CPT/HCPCS: 36415; 71046; 80053; 82962; 84484; 85025; 93005; 93306; 94640; 99285; G0378; J1815; J7613; G0257; G0379

== ENCOUNTER → 2018-12-20 | Outpatient (CLI) | payer MEDICARE, BC ==
[~2018-12-20] MED LIST changes: +AMLO5TAB10 PO; -AMLO5TAB7 PO
--- NOTE | 2018-12-20 14:15 | RAD ---
DATE: 12/20/2018 EXAM: MAMMO TERESE SCREENING BILATERAL HISTORY: Routine screening COMPARISON: 11/10/2017 This study was interpreted with the benefit of Computerized Aided Detection (CAD). Breast Density: SCATTERED The breast parenchyma shows scattered fibroglandular densities. Breast parenchyma level B. FINDINGS: 2-D and 3-D tomosynthesis imaging was performed in CC and MLO projections. An old breast biopsy marker is again noted superiorly on the right. No new or enlarging breast densities are seen. Benign type calcifications are present. No suspicious microcalcifications have developed. IMPRESSION: Stable mammograms without evidence of malignancy. BI-RADS CATEGORY: 2 BENIGN FINDING(S) RECOMMENDED FOLLOW-UP: 12M 12 MONTH FOLLOW-UP PQRS compliance statement: Patient information was entered into a reminder system with a target due date for the next mammogram. Mammography is a sensitive method for finding small breast cancers, but it does not detect them all and is not a substitute for careful clinical examination. A negative mammogram does not negate a clinically suspicious finding and should not result in delay in biopsying a clinically suspicious abnormality. "Our facility is accredited by the [employer] Mammography Program."
== END | disposition home or self-care (01) ==
LOC: MAMMO 12:07
PROVIDERS: ATTEND Internal Medicine
DX: Z12.31 Encounter for screening mammogram for malignant neoplasm of breast (principal); R92.8 Other abnormal and inconclusive findings on diagnostic imaging of breast
CPT/HCPCS: 77063; 77067

== ENCOUNTER → 2019-03-28 | Outpatient (CLI) | payer MEDICARE, BC ==
--- NOTE | 2019-03-28 12:27 | RAD ---
RS Compliance Statement: One or more of the following individualized dose reduction techniques were utilized for this examination: 1. Automated exposure control 2. Adjustment of the mA and/or kV according to patient size 3. Use of iterative reconstruction technique CT head without contrast 03/28/2019 11:30 AM INDICATION: Posterior headache syndrome COMPARISON: CT head July 21, 2013 TECHNIQUE: Multiple axial CT images of the head were obtained from skull base through the vertex without intravenous contrast. FINDINGS: Head: Ventricles, sulci and basal cisterns are within normal limits. There is no hydrocephalus. Oropeza-white matter differentiation is normal. There is no acute intracranial hemorrhage. There is no mass, mass effect or midline shift. Posterior fossa is normal in appearance. Visualized portions of the orbits are normal. Paranasal sinuses are well aerated. Mastoid air cells are well aerated. Scalp and calvaria are normal. IMPRESSION: No acute intracranial hemorrhage. Electronically signed by: Elicia Villasenor MD (03/28/2019 12:24 PM) [id number]
== END | disposition home or self-care (01) ==
LOC: CT 11:57
PROVIDERS: ATTEND Internal Medicine
DX: G44.009 Cluster headache syndrome, unspecified, not intractable (principal)
CPT/HCPCS: 70450

== ENCOUNTER 2019-08-09 11:09 | Emergency (ER) | payer MEDICARE, BC ==
[~2019-08-09] VITALS: Ht 157.5 cm; Wt 101.2 kg
[~2019-08-09 11:09] MED LIST changes: -CLON1PAT2 TD; +CLON1PAT6 TD; +OMEP40CA45 PO; -OMEP40CA5 PO
[2019-08-09 11:50] VITALS: BP 107/71
[2019-08-09] MEDS ORDERED: CEPH500T PO (12:29)
--- NOTE | 2019-08-09 12:30 | PHYS DOC ---
Past Medical History Past Medical History: Diabetes-Type II, High Cholesterol, Hypertension, ID, Renal Failure, Other Additional Past Medical Histor: ESRD, enlarged heart, sleep apnea- uses cpap, obesity Past Surgical History: , Hysterectomy, Tonsillectomy Alcohol Use: None Drug Use: None Adult General Chief Complaint Chief Complaint: ABDOMINAL PAIN HPI HPI Patient is a 59 year old female history of diabetes type 2, hypertension, high cholesterol, end-stage kidney disease on dialysis presenting to the ED today stating she noted some drainage from her navel yesterday. Patient denies any fever. Review of Systems Review of Systems Constitutional: Denies fever or chills [] Eyes: Denies change in visual acuity, redness, or eye pain [] HENT: Denies nasal congestion or sore throat [] Respiratory: Denies cough or shortness of breath [] Cardiovascular: No additional information not addressed in HPI [] GI: Denies abdominal pain, nausea, vomiting, bloody stools or diarrhea [] : Denies dysuria or hematuria [] Musculoskeletal: Denies back pain or joint pain [] Integument: Reports drainage from the navel Neurologic: Denies headache, focal weakness or sensory changes [] All other systems were reviewed and found to be within normal limits, except as documented in this note. Allergies Allergies Allergies Coded Allergies Type Severity Reaction Last Updated Verified lisinopril Allergy Intermediate 12/20/17 Yes Physical Exam Physical Exam Constitutional: Well developed, well nourished, no acute distress, non-toxic appearance. [] HENT: Normocephalic, atraumatic, bilateral external ears normal, oropharynx moist, no oral exudates, nose normal. [] Eyes: PERRLA, EOMI, conjunctiva normal, no discharge. [] Neck: Normal range of motion, no tenderness, supple, no stridor. [] Cardiovascular:Heart rate regular rhythm, no murmur [] Lungs & Thorax: Bilateral breath sounds clear to auscultation [] Abdomen: Bowel sounds normal, soft, no tenderness, no masses, no pulsatile franklyn s. [] Skin: Exterior abdomen appears normal, no obvious drainage noted from the navel, Q-tip was used, trace amount of brownish discharge was noted on the Q-tip. Back: No tenderness, no CVA tenderness. [] Extremities: No tenderness, no cyanosis, no clubbing, ROM intact, no edema. [] Neurologic: Alert and oriented X 3, normal motor function, normal sensory function, no focal deficits noted. [] Psychologic: Affect normal, judgement normal, mood normal. [] Current Patient Data Vital Signs Vital Signs Date Time Temp Pulse Resp B/P (MAP) Pulse Ox O2 Delivery O2 Flow Rate FiO2 08/09/19 11:50 98.4 84 20 107/71 (83) 97 Room Air 98.4 EKG EKG [] Radiology/Procedures Radiology/Procedures [] Course & Med Decision Making Course & Med Decision Making Pertinent Labs and Imaging studies reviewed. (See chart for details) This is a 59-year-old female patient presenting to the ED today with drainage from the navel. Tetanus up-to-date. Discharged on cephalexin. Follow-up with PCP next week she already has an appointment. Dragon Disclaimer Dragon Disclaimer This electronic medical record was generated, in whole or in part, using a voice recognition dictation system. Departure Departure Impression: Primary Impression: Skin infection Disposition: 01 HOME, SELF-CARE Condition: STABLE Referrals: SHANTI CHRISTIAN MD (PCP) Follow-up next week Patient Instructions: Skin Infections Additional Instructions: We put you on antibiotics for skin infection to the navel, ensure you complete them. Avoid digging into the navel region. Keep the area clean and dry. Your prescriptions were sent to the pharmacy. Scripts Cephalexin (CEPHALEXIN) 500 Mg Tablet 1 TAB PO TID, #30 TAB Prov: VAIBHAV TURPIN APRN 08/09/19 VAIBHAV TURPIN APRN Aug 09, 2019 12:30
== END 2019-08-09 12:30 | disposition home or self-care (01) ==
LOC: ER 11:09
DX: L08.89 Other specified local infections of the skin and subcutaneous tissue (principal); R19.8 Other specified symptoms and signs involving the digestive system and abdomen; I12.0 Hypertensive chronic kidney disease with stage 5 chronic kidney disease or end stage renal disease; E11.22 Type 2 diabetes mellitus with diabetic chronic kidney disease; N18.6 End stage renal disease; Z99.2 Dependence on renal dialysis; E78.00 Pure hypercholesterolemia, unspecified; I25.2 Old myocardial infarction; Z90.710 Acquired absence of both cervix and uterus; E66.9 Obesity, unspecified; Z68.41 Body mass index [BMI] 40.0-44.9, adult; Z88.8 Allergy status to other drugs, medicaments and biological substances
CPT/HCPCS: 99283

== ENCOUNTER 2019-10-24 19:10 | Emergency (ER) | payer MEDICARE, BC ==
[~2019-10-24] VITALS: Ht 157.5 cm; Wt 100.0 kg
[~2019-10-24 19:10] MED LIST changes: +ACET500T68 PO; +CEPH500T PO; +CINA60TA PO; +FERR210T PO
[2019-10-24 19:50] VITALS: BP 114/72
== END 2019-10-24 20:53 | disposition left against medical advice (07) ==
LOC: ER 19:10
DX: R25.1 Tremor, unspecified (principal); Z53.21 Procedure and treatment not carried out due to patient leaving prior to being seen by health care provider